=== PATIENT | female | born 1965 | race Caucasian/White ===

== ENCOUNTER 2022-12-29 19:27 | Emergency (ER) | payer OTHER, MEDICAID, SELFPAY ==
[2022-12-29 19:37] VITALS: BP 151/57; PULSE 83; RESP 18; TEMP 36.5; O2SAT 100
--- NOTE | 2022-12-29 19:54 | CT_ITS ---
[facility] [id number] Patient Name: LEI KELLY MRN: [id number] date: 1965 Sex: F Assigned Patient Location: ER Current Patient Location: ER Accession/Order Number: [id number] Exam Date: 12/29/2022 20:15 Report Date: 12/29/2022 21:00 At the request of: YOGI BEAVERS Procedure: CT abdomen pelvis w con EXAMINATION: CT ABDOMEN AND PELVIS WITH IV CONTRAST CLINICAL HISTORY: Right lower quadrant abdominal abscess TECHNIQUE: CT of the abdomen and pelvis was performed using standard technique, scanning from just above the dome of the diaphragm to the symphysis pubis. All CT scans at this facility use dose modulation, iterative reconstruction, and/or weight based dosing when appropriate to reduce radiation dose to as low as reasonably achievable. Contrast: IV: 100 ml of Omnipaque 300 COMPARISON: None. RESULT: Liver: No mass. Biliary: No bile duct dilation. Gallbladder is absent. Spleen: No mass. No splenomegaly. Pancreas: Mild fatty atrophy of the pancreas. No mass or duct dilation. Adrenals: No mass. Kidneys: No mass, calculus or hydronephrosis. GI tract: No dilation or wall thickening. Moderate colonic stool. Colonic diverticulosis without diverticulitis. Lymph nodes: No abdominal or pelvic lymphadenopathy. Mesentery/Peritoneum: No ascites or mass. Retroperitoneum: No mass. Vasculature: The celiac axis and SMA are patent. The portal vein and branches, splenic vein, SMV, and hepatic veins are patent. Abdominal aortic atherosclerotic disease without aneurysm. Pelvis: No mass, ascites or fluid collection. Urinary bladder is unremarkable. . Bones/Soft Tissues: Marked wall thickening and subcutaneous stranding along the anterior abdominal wall more prominent on the right. No drainable fluid collection. Subcutaneous calcification along the inferior pannus Lower thorax: Unremarkable. IMPRESSION: Anterior lower abdominal wall thickening, prominent on the right with subcutaneous stranding. No drainable fluid collection or abscess. Electronically authenticated by: EVETTE FUENTES Date: 12/29/2022 21:00
--- NOTE | 2022-12-29 19:56 | ED.GENADUL1 ---
Documented by User: Paula Johnson 12/29/22 21:52 HPI - General Adult General Chief complaint: Skin/Abscess/Foreign Body Stated complaint: WOUND CHECK ADB Time Seen by Provider: 12/29/22 19:28 Source: patient Mode of arrival: walk-in Limitations: physical limitation History of Present Illness HPI narrative: 57 year old female presents to the ED for a raised, painful area to her abdomen. Onset was a few days ago. States it started as a blister which since broke open and has been draining. She has developed surrounding erythema, discomfort that has gotten worse over the past few days. The area on the abdomen is not currently draining. Denies fever, chills, injury, N/V/D. Rates her pain 7/10 at this time. Related Data Home Medications Medication Instructions Recorded Confirmed fluticasone propionate 50 2 spray intranasal Q12H 12/29/22 12/29/22 mcg/actuation nasal spray,suspension losartan 50 mg tablet 50 mg PO DAILY 12/29/22 12/29/22 meloxicam 15 mg tablet 15 mg PO DAILY 12/29/22 12/29/22 metformin 1,000 mg tablet 1,000 mg PO .twice daily 12/29/22 12/29/22 pregabalin 100 mg capsule 100 mg PO Q12H 12/29/22 12/29/22 rosuvastatin 20 mg tablet 20 mg PO DAILY 12/29/22 12/29/22 Previous Rx's Medication Instructions Recorded cephalexin 500 mg capsule 500 mg PO QID 10 days #40 caps 12/29/22 doxycycline monohydrate 100 mg 100 mg PO BID 10 days #20 caps 12/29/22 capsule Allergies Allergy/AdvReac Type Severity Reaction Status Date / Time No Known Drug Allergies Allergy Verified 12/29/22 19:49 Review of Systems ROS Constitutional Denies: fever, chills or fatigue Cardiovascular Denies: chest pain Respiratory Denies: shortness of breath or cough Gastrointestinal Reports: abdominal pain; Denies: nausea, vomiting or diarrhea Genitourinary Denies: painful urination Musculoskeletal Denies: back pain Integumentary/Breast Reports: redness, skin pain, skin tenderness and skin swelling Neurological Denies: headache Exam Constitutional Vital Signs - 24 hr 12/29/22 19:37 12/29/22 20:32 12/29/22 20:41 Temperature 97.7 F Pulse Rate [Monitor] 83 95 H Respiratory Rate 18 18 18 Blood Pressure [Right Arm] 151/57 H 128/64 H Pulse Oximetry 100 96 96 Oxygen Delivery Method Room Air Room Air Room Air 12/29/22 21:09 12/29/22 23:13 Temperature 100.1 F H Pulse Rate [Monitor] 94 H 103 H Respiratory Rate 16 20 Blood Pressure [Right Arm] 145/5 H 129/70 H Pulse Oximetry 99 99 Oxygen Delivery Method Room Air Room Air Common normals: no apparent distress and oriented x3 General appearance: cooperative; not in distress and not ill appearing Chest Chest: symmetrical chest wall rise Respiratory Common normals: normal respiratory effort Auscultation: clear to auscultation bilaterally Cardio Common normals: regular rate GI Inspection: erythema (Mid to right-sided abd with scabbed 1 cm area in center. ) and pannus present Auscultation: normoactive bowel sounds Palpation: firm (Over areas of erythema to right and mid abdomen.) and tender (Over the areas of erythema to right and mid abdomen.) Extremity Common normals: normal capillary refill Neuro Common normals: oriented x3 Sensorium/orientation: awake and alert Speech: speech normal Course Vital Signs Vital signs: Vital Signs Temperature 97.7 F 12/29/22 19:37 Pulse Rate 83 12/29/22 19:37 Respiratory Rate 18 12/29/22 19:37 Blood Pressure 151/57 H 12/29/22 19:37 Pulse Oximetry 100 12/29/22 19:37 Oxygen Delivery Method Room Air 12/29/22 19:37 Temperature 100.1 F H 12/29/22 23:13 Pulse Rate 103 H 12/29/22 23:13 Respiratory Rate 20 12/29/22 23:13 Blood Pressure 129/70 H 12/29/22 23:13 Pulse Oximetry 99 12/29/22 23:13 Oxygen Delivery Method Room Air 12/29/22 23:13 Medical Decision Making MDM Narrative Medical decision making narrative: WBC count was 8.9. CT scan showed no drainable fluid collection or abscess. The patient was started on antibiotics here in the ED. She preferred to be discharged home. Prescriptions were provided for Keflex and doxycycline. Return precautions were discussed. Follow up with pcp for a recheck, further evaluation and treatment. Differential Diagnosis Differential Diagnosis: Cellulitis, abscess Lab Data Lab results reviewed: Yes I reviewed the patient's lab results Labs: Lab Results 12/29/22 Range/Units 19:50 WBC 8.9 (4.0-11.0) 10^3/uL RBC 3.84 L (4.20-5.40) 10^6/uL Hgb 11.7 L (12.0-16.0) g/dL Hct 34.9 L (36.0-48.0) % MCV 90.9 (81.0-99.0) fL MCH 30.5 (26.7-34.0) pg MCHC 33.5 (29.9-35.2) g/dL RDW 14.7 (11.0-15.0) % Plt Count 223 (150-450) 10^3/uL MPV 10.0 (9.5-13.5) fL Neut % (Auto) 74.7 (43.0-75.0) % Lymph % (Auto) 12.9 L (20.5-60.0) % [place] % (Auto) 8.7 (1.7-12.0) % Eos % (Auto) 3.1 (0.9-7.0) % Baso % (Auto) 0.4 (0.2-2.0) % Neut # (Auto) 6.6 H (1.4-6.5) 10^3/uL Lymph # (Auto) 1.2 (1.2-3.8) 10^3/uL [place] # (Auto) 0.8 (0.3-0.8) 10^3/uL Eos # (Auto) 0.3 (0.0-0.7) 10^3/uL Baso # (Auto) 0.0 (0.0-0.1) 10^3/uL Abs Immat Gran (auto) 0.02 (0.00-0.03) 10^3/uL Imm/Tot Granulo (auto) 0.2 (0.0-0.5) % Sodium 133 L (136-145) mmol/L Potassium 3.3 L (3.5-5.1) mmol/L Chloride 98 (98-107) mmol/L Carbon Dioxide 20.7 L (21.0-32.0) mmol/L Anion Gap 17.6 BUN 15.2 (7.0-18.0) mg/dL Creatinine 0.66 (0.55-1.02) mg/dL Est GFR ( Amer) >60 (>=60) Est GFR (Non-Af Amer) >60 (>=60) BUN/Creatinine Ratio 23.0 Glucose 295 H (74-106) mg/dL Lactate 1.6 (0.4-2.0) mmol/L Calcium 8.9 (8.5-10.1) mg/dL Total Bilirubin 0.7 (0.2-1.0) mg/dL AST 13 L (15-37) U/L ALT 22 (14-59) U/L Alkaline Phosphatase 135 H (46-116) U/L Total Protein 6.8 (6.4-8.2) g/dL Albumin 3.0 L (3.4-5.0) g/dL Globulin 3.8 g/dL Albumin/Globulin Ratio 0.[address] scan - abdomen: Radiologist's impression: Procedure:? CT abdomen pelvis w con ? EXAMINATION: CT ABDOMEN AND PELVIS WITH IV CONTRAST ? CLINICAL HISTORY: Right lower quadrant abdominal abscess ? TECHNIQUE: CT of the abdomen and pelvis was performed using standard technique, scanning from just above the dome of the diaphragm to the symphysis pubis. All ? CT scans at this facility use dose modulation, iterative reconstruction, and/or weight based dosing when appropriate to reduce radiation dose to as low as reasonably achievable. ? Contrast: IV: 100 ml of Omnipaque 300 ? COMPARISON: None. ? RESULT: ? Liver: No mass. ? Biliary: No bile duct dilation. Gallbladder is absent. ? Spleen: No mass. No splenomegaly. ? Pancreas: Mild fatty atrophy of the pancreas. No mass or duct dilation. ? Adrenals: No mass. ? Kidneys: No mass, calculus or hydronephrosis. ? GI tract: No dilation or wall thickening. Moderate colonic stool. Colonic diverticulosis without diverticulitis. ? Lymph nodes: No abdominal or pelvic lymphadenopathy. ? Mesentery/Peritoneum: No ascites or mass. ? Retroperitoneum: No mass. ? Vasculature: The celiac axis and SMA are patent. The portal vein and branches, ? splenic vein, SMV, and hepatic veins are patent. Abdominal aortic atherosclerotic disease without aneurysm. ? Pelvis: No mass, ascites or fluid collection. Urinary bladder is unremarkable. ? . ? Bones/Soft Tissues: Marked wall thickening and subcutaneous stranding along the anterior abdominal wall more prominent on the right. No drainable fluid collection. Subcutaneous calcification along the inferior pannus ? Lower thorax: Unremarkable. ? IMPRESSION: ? Anterior lower abdominal wall thickening, prominent on the right with subcutaneous stranding. No drainable fluid collection or abscess. ? ? ? Electronically authenticated by: EVETTE? ALFREDO ? Date: 12/29/2022? 21:00 Discharge Plan Discharge Chief Complaint: Skin/Abscess/Foreign Body Clinical Impression: Cellulitis Patient Disposition: Home, Self-Care Time of Disposition Decision: 21:42 Condition: Fair Mode of Transportation: Private Vehicle Prescriptions / Home Meds: New doxycycline monohydrate 100 mg capsule 100 mg PO BID 10 Days Qty: 20 0RF cephalexin 500 mg capsule 500 mg PO QID 10 Days Qty: 40 0RF No Action losartan 50 mg tablet 50 mg PO DAILY fluticasone propionate 50 mcg/actuation spray,suspension 2 spray INTRANASAL Q12H meloxicam 15 mg tablet 15 mg PO DAILY metformin 1,000 mg tablet 1,000 mg PO .twice daily pregabalin 100 mg capsule 100 mg PO Q12H rosuvastatin 20 mg tablet 20 mg PO DAILY Instructions: Cellulitis (ED) Additional Instructions: Return to the ER for a recheck if your condition worsens. Return to the ER for a recheck if the redness spreads outside of the marking that was made here in the ED. Return for a recheck if you have had no improvement within the next 48 hours. Follow up with your family physician for a recheck, further evaluation and treatment. Stand Alone Forms: Portal Instructions Referrals: JESSE QIU [Primary Care Provider] - 1 week Discharge Date/Time: 12/29/22 23:16 Documented by User: Daisy Haney MD 12/30/22 01:15 HPI - General Adult General Chief complaint: Skin/Abscess/Foreign Body Stated complaint: WOUND CHECK ADB Time Seen by Provider: 12/29/22 19:28 Related Data Home Medications Medication Instructions Recorded Confirmed fluticasone propionate 50 2 spray intranasal Q12H 12/29/22 12/29/22 mcg/actuation nasal spray,suspension losartan 50 mg tablet 50 mg PO DAILY 12/29/22 12/29/22 meloxicam 15 mg tablet 15 mg PO DAILY 12/29/22 12/29/22 metformin 1,000 mg tablet 1,000 mg PO .twice daily 12/29/22 12/29/22 pregabalin 100 mg capsule 100 mg PO Q12H 12/29/22 12/29/22 rosuvastatin 20 mg tablet 20 mg PO DAILY 12/29/22 12/29/22 Previous Rx's Medication Instructions Recorded cephalexin 500 mg capsule 500 mg PO QID 10 days #40 caps 12/29/22 doxycycline monohydrate 100 mg 100 mg PO BID 10 days #20 caps 12/29/22 capsule Allergies Allergy/AdvReac Type Severity Reaction Status Date / Time No Known Drug Allergies Allergy Verified 12/29/22 19:49 Exam Constitutional Vital Signs - 24 hr 12/29/22 19:37 12/29/22 20:32 12/29/22 20:41 Temperature 97.7 F Pulse Rate [Monitor] 83 95 H Respiratory Rate 18 18 18 Blood Pressure [Right Arm] 151/57 H 128/64 H Pulse Oximetry 100 96 96 Oxygen Delivery Method Room Air Room Air Room Air 12/29/22 21:09 12/29/22 23:13 Temperature 100.1 F H Pulse Rate [Monitor] 94 H 103 H Respiratory Rate 16 20 Blood Pressure [Right Arm] 145/5 H 129/70 H Pulse Oximetry 99 99 Oxygen Delivery Method Room Air Room Air Course Vital Signs Vital signs: Vital Signs Temperature 97.7 F 12/29/22 19:37 Pulse Rate 83 12/29/22 19:37 Respiratory Rate 18 12/29/22 19:37 Blood Pressure 151/57 H 12/29/22 19:37 Pulse Oximetry 100 12/29/22 19:37 Oxygen Delivery Method Room Air 12/29/22 19:37 Temperature 100.1 F H 12/29/22 23:13 Pulse Rate 103 H 12/29/22 23:13 Respiratory Rate 20 12/29/22 23:13 Blood Pressure 129/70 H 12/29/22 23:13 Pulse Oximetry 99 12/29/22 23:13 Oxygen Delivery Method Room Air 12/29/22 23:13 Medical Decision Making MDM Narrative Medical decision making narrative: WBC count was 8.9. CT scan showed no drainable fluid collection or abscess. The patient was started on antibiotics here in the ED. She preferred to be discharged home. Prescriptions were provided for Keflex and doxycycline. Return precautions were discussed. Follow up with pcp for a recheck, further evaluation and treatment. Attending physician attestation I have reviewed the mid-level documentation, agree with the documentation, medical decision making and treatment plan as outlined by the mid-level provider. Lab Data Labs: Lab Results 12/29/22 Range/Units 19:50 WBC 8.9 (4.0-11.0) 10^3/uL RBC 3.84 L (4.20-5.40) 10^6/uL Hgb 11.7 L (12.0-16.0) g/dL Hct 34.9 L (36.0-48.0) % MCV 90.9 (81.0-99.0) fL MCH 30.5 (26.7-34.0) pg MCHC 33.5 (29.9-35.2) g/dL RDW 14.7 (11.0-15.0) % Plt Count 223 (150-450) 10^3/uL MPV 10.0 (9.5-13.5) fL Neut % (Auto) 74.7 (43.0-75.0) % Lymph % (Auto) 12.9 L (20.5-60.0) % [place] % (Auto) 8.7 (1.7-12.0) % Eos % (Auto) 3.1 (0.9-7.0) % Baso % (Auto) 0.4 (0.2-2.0) % Neut # (Auto) 6.6 H (1.4-6.5) 10^3/uL Lymph # (Auto) 1.2 (1.2-3.8) 10^3/uL [place] # (Auto) 0.8 (0.3-0.8) 10^3/uL Eos # (Auto) 0.3 (0.0-0.7) 10^3/uL Baso # (Auto) 0.0 (0.0-0.1) 10^3/uL Abs Immat Gran (auto) 0.02 (0.00-0.03) 10^3/uL Imm/Tot Granulo (auto) 0.2 (0.0-0.5) % Sodium 133 L (136-145) mmol/L Potassium 3.3 L (3.5-5.1) mmol/L Chloride 98 (98-107) mmol/L Carbon Dioxide 20.7 L (21.0-32.0) mmol/L Anion Gap 17.6 BUN 15.2 (7.0-18.0) mg/dL Creatinine 0.66 (0.55-1.02) mg/dL Est GFR ( Amer) >60 (>=60) Est GFR (Non-Af Amer) >60 (>=60) BUN/Creatinine Ratio 23.0 Glucose 295 H (74-106) mg/dL Lactate 1.6 (0.4-2.0) mmol/L Calcium 8.9 (8.5-10.1) mg/dL Total Bilirubin 0.7 (0.2-1.0) mg/dL AST 13 L (15-37) U/L ALT 22 (14-59) U/L Alkaline Phosphatase 135 H (46-116) U/L Total Protein 6.8 (6.4-8.2) g/dL Albumin 3.0 L (3.4-5.0) g/dL Globulin 3.8 g/dL Albumin/Globulin Ratio 0.8 Discharge Plan Discharge Chief Complaint: Skin/Abscess/Foreign Body Clinical Impression: Cellulitis Patient Disposition: Home, Self-Care Time of Disposition Decision: 21:42 Condition: Fair Mode of Transportation: Private Vehicle Prescriptions / Home Meds: New doxycycline monohydrate 100 mg capsule 100 mg PO BID 10 Days Qty: 20 0RF cephalexin 500 mg capsule 500 mg PO QID 10 Days Qty: 40 0RF No Action losartan 50 mg tablet 50 mg PO DAILY fluticasone propionate 50 mcg/actuation spray,suspension 2 spray INTRANASAL Q12H meloxicam 15 mg tablet 15 mg PO DAILY metformin 1,000 mg tablet 1,000 mg PO .twice daily pregabalin 100 mg capsule 100 mg PO Q12H rosuvastatin 20 mg tablet 20 mg PO DAILY Instructions: Cellulitis (ED) Additional Instructions: Return to the ER for a recheck if your condition worsens. Return to the ER for a recheck if the redness spreads outside of the marking that was made here in the ED. Return for a recheck if you have had no improvement within the next 48 hours. Follow up with your family physician for a recheck, further evaluation and treatment. Stand Alone Forms: Portal Instructions Referrals: JESSE QIU [Primary Care Provider] - 1 week Discharge Date/Time: 12/29/22 23:16
[2022-12-29 20:32] VITALS: BP 128/64; PULSE 95; RESP 18; O2SAT 96
--- NOTE | 2022-12-29 20:33 | PC.NURSE ---
Large red area RLQ with small area in center that is open with pus noted. Area marked. Attempted to culture area
[2022-12-29 20:41] VITALS: RESP 18; O2SAT 96
[2022-12-29 21:05] LABS: Lactate/Lactic Acid 1.6 mmol/L (0.4-2.0)
[2022-12-29 21:09] VITALS: BP 145/5; PULSE 94; RESP 16; O2SAT 99
[2022-12-29 21:14] LABS: Hematocrit 34.9 % (36.0-48.0); Hemoglobin 11.7 g/dL (12.0-16.0); Mean Corpuscular HGB Conc 33.5 g/dL (29.9-35.2); Mean Corpuscular Hemoglobin 30.5 pg (26.7-34.0); Mean Corpuscular Volume 90.9 fL (81.0-99.0); Red Blood Count 3.84 10^6/uL (4.20-5.40); White Blood Count 8.9 10^3/uL (4.0-11.0)
[2022-12-29 21:15] LABS: Basophils Percent Auto 0.4 % (0.2-2.0); Eosinophils Absolute Auto 0.3 10^3/uL (0.0-0.7); Eosinophils Percent Auto 3.1 % (0.9-7.0); Immature Granulocytes Pct Auto 0.2 % (0.0-0.5); Lymphocytes Absolute Auto 1.2 10^3/uL (1.2-3.8); Lymphocytes Percent Auto 12.9 % (20.5-60.0); Monocytes Absolute Auto 0.8 10^3/uL (0.3-0.8); Monocytes Percent Auto 8.7 % (1.7-12.0); Neutrophils Absolute Auto 6.6 10^3/uL (1.4-6.5); Neutrophils Percent Auto 74.7 % (43.0-75.0); Platelet Count 223 10^3/uL (150-450); Red Cell Distribution Width 14.7 % (11.0-15.0)
[2022-12-29 21:16] LABS: Immature Granulocytes Abs Auto 0.02 10^3/uL (0.00-0.03)
[2022-12-29 21:20] LABS: Anion Gap 17.6; Blood Urea Nitrogen 15.2 mg/dL (7.0-18.0); Calcium 8.9 mg/dL (8.5-10.1); Carbon Dioxide 20.7 mmol/L (21.0-32.0); Chloride 98 mmol/L (98-107); Estimated GFR (African America >60 (>=60); Estimated GFR (Non-African Ame >60 (>=60); Glucose 295 mg/dL (74-106); Potassium 3.3 mmol/L (3.5-5.1); Sodium 133 mmol/L (136-145)
[2022-12-29 21:21] LABS: Alanine Aminotransferase 22 U/L (14-59); Albumin Globulin Ratio 0.8; Alkaline Phosphatase 135 U/L (46-116); Aspartate Amino Transferase 13 U/L (15-37); Bilirubin Total 0.7 mg/dL (0.2-1.0); Globulin 3.8 g/dL; Total Protein 6.8 g/dL (6.4-8.2)
[2022-12-29] MEDS: DOXYCYCLINE MONOHYDRATE 100 MG CAPSULE PO (22:24)
[2022-12-29] MEDS: CEFAZOLIN SODIUM 1,000 MG in 0.9 % SODIUM CHLORIDE 50 ML 100 MG IV (22:24)
[2022-12-29 23:13] VITALS: BP 129/70; PULSE 103; RESP 20; TEMP 37.8; O2SAT 99
== END 2022-12-29 23:16 | disposition home or self-care (01) ==
PROVIDERS: Nurse Practitioner Family; Emergency Provider Emergency Medicine; PCP Internal Medicine
DX: L03.311 Cellulitis of abdominal wall (principal); Z79.84 Long term (current) use of oral hypoglycemic drugs; Z79.899 Other long term (current) drug therapy
CPT/HCPCS: 36415; 74177; 80053; 83605; 85025; 87040; 87070; 87150; 87186; 96374; 99285; Q9967

== ENCOUNTER 2023-01-03 22:49 | Inpatient (IN) | payer OTHER, MEDICAID, SELFPAY ==
[2023-01-03 22:54] VITALS: BP 161/90; PULSE 58; RESP 18; TEMP 36.9; O2SAT 100; BMI 44.9
[2023-01-03 22:55] VITALS: BP 161/90; O2SAT 82; O2SAT 99
--- NOTE | 2023-01-03 23:11 | CT_ITS ---
The [address] [place], [place] [address] Patient Name: LEI KELLY MRN: [id number] date: 1965 Sex: F Assigned Patient Location: ER Current Patient Location: Accession/Order Number: [id number] Exam Date: 01/03/2023 23:50 Report Date: 01/04/2023 01:08 At the request of: MUNIR MARKER Procedure: CT abdomen pelvis w con EXAM: CT abdomen pelvis w con HISTORY: abdominal abscess COMPARISON: CT abdomen and pelvis most recently 12/29/2022. TECHNIQUE: Images of the abdomen and pelvis with IV contrast. Dose reduction techniques were achieved by using automated exposure control and/or adjustment of mA and/or kV according to patient size and/or use of iterative reconstruction technique. FINDINGS: Lung bases are clear. No adrenal mass or adenopathy. No obstructive uropathy. Normal aorta. No bowel obstruction or inflammation. No pneumatosis or pneumoperitoneum. Patient is morbidly obese. There is persistent skin thickening and subcutaneous edema in the right greater than left lower quadrant. No organized fluid collection. No soft tissue gas. There is no pelvic adenopathy or ascites. Bladder is decompressed. There is evidence of fluid distention of the endometrial cavity with uterine atrophy. No suspicious lytic or sclerotic osseous lesions. IMPRESSION: 1. Abdominal wall edema in the lower quadrants right greater than left. No significant change from last weeks exam. No evidence of abscess. 2. Hydrometra redemonstrated. This is of indeterminate acuity and should be followed up with outpatient transvaginal pelvic ultrasound. Electronically authenticated by: EBONIE JEWELL Date: 01/04/2023 01:08
--- NOTE | 2023-01-03 23:33 | ED_ITS ---
HPI - General Adult General Stated complaint: WOUND CHECK Time Seen by Provider: 01/03/23 23:11 Source: patient Mode of arrival: walk-in History of Present Illness HPI narrative: This 57-year-old female, diabetic was seen last Sunday for an abscess on the right lower abdominal wall. She was discharged home with prescription for Keflex and doxycycline. She has been using the antibiotics but the symptoms have been slowly getting worse. She has a large indurated area in the lower abdominal wall as well as drainage from a necrotic area approximately 2 x 3 cm on the abdominal wall. She denies any fever. She states she has been having pain and the pain is making her nauseated. She states her symptoms started several days prior to coming to the emergency department. Location: Reports abdomen Related Data Home Medications Medication Instructions Recorded Confirmed fluticasone propionate 50 2 spray intranasal Q12H 12/29/22 12/29/22 mcg/actuation nasal spray,suspension losartan 50 mg tablet 50 mg PO DAILY 12/29/22 12/29/22 meloxicam 15 mg tablet 15 mg PO DAILY 12/29/22 12/29/22 metformin 1,000 mg tablet 1,000 mg PO .twice daily 12/29/22 12/29/22 pregabalin 100 mg capsule 100 mg PO Q12H 12/29/22 12/29/22 rosuvastatin 20 mg tablet 20 mg PO DAILY 12/29/22 12/29/22 Previous Rx's Medication Instructions Recorded cephalexin 500 mg capsule 500 mg PO QID 10 days #40 caps 12/29/22 doxycycline monohydrate 100 mg 100 mg PO BID 10 days #20 caps 12/29/22 capsule Allergies Allergy/AdvReac Type Severity Reaction Status Date / Time No Known Drug Allergies Allergy Verified 12/29/22 19:49 Review of Systems ROS Status of ROS 10 or more systems reviewed and unremarkable except as noted in history and below Exam Constitutional Vital Signs - 24 hr 01/03/23 22:54 01/03/23 22:55 Temperature 98.4 F Pulse Rate [Monitor] 58 L Respiratory Rate 18 Blood Pressure 161/90 H Blood Pressure [Right Arm] 161/90 H Pulse Oximetry 100 99 Oxygen Delivery Method Room Air Documenting provider has reviewed patient's vital signs: yes (Afebrile, hypertensive) Common normals: no apparent distress (Nontoxic but uncomfortable) Nutritional appearance: obese Orientation/consciousness: Yes awake, Yes oriented to person, Yes oriented to place and Yes oriented to time HENMT Common normals: normocephalic and head/scalp atraumatic Eye Common normals: PERRL and EOMs intact bilaterally Chest Common normals: inspection of chest normal Respiratory Common normals: normal respiratory effort, no retractions, no use of accessory muscles, clear to auscultation bilaterally and percussion normal Cardio Common normals: no JVD, regular rate, regular rhythm, S1 normal heart sound, S2 normal heart sound, no gallops and no clicks GI Inspection: other (2 x 3 cm draining abscess on the right lower abdominal wall ) Other: 2 x 3 cm area of necrotic abscess on right lower abdominal wall with local induration approximately 10 x 8 cm into the dependent portion of the pannus on the lower abdominal wall, this is draining copious purulent material which was cultured Neuro Common normals: oriented x3 Speech: speech normal Psych Common normals: mental status grossly normal Course Vital Signs Vital signs: Vital Signs Temperature 98.4 F 01/03/23 22:54 Pulse Rate 58 L 01/03/23 22:54 Respiratory Rate 18 01/03/23 22:54 Blood Pressure 161/90 H 01/03/23 22:54 Pulse Oximetry 100 01/03/23 22:54 Oxygen Delivery Method Room Air 01/03/23 22:54 Temperature 98.4 F 01/03/23 22:54 Pulse Rate 58 L 01/03/23 22:54 Respiratory Rate 18 01/03/23 22:54 Blood Pressure 161/90 H 01/03/23 22:55 Pulse Oximetry 99 01/03/23 22:55 Oxygen Delivery Method Room Air 01/03/23 22:54 Medical Decision Making [facility] Narrative Medical decision making narrative: This 57-year-old female with a history of diabetes was seen in this emergency d epartment on 6 for right lower quadrant abdominal abscess. At that time she had a blistery pimple type of infection on her abdominal wall with some local erythema. There was a purple marker drawn around the area of erythema on the abdominal wall. She had normal labs and CT scan at that time showed anterior lower abdominal wall thickening prominent on the right with subcutaneous stranding with no drainable fluid collection or abscess. She was discharged home with prescription for Keflex and doxycycline. She presents to the emergency department at this time for evaluation of increasing tenderness and drainage from the area in the right lower quadrant of her abdominal wall. She has not had a fever. The abscess area had been cultured on her previous Emergency Room visit and was positive for staph aureus. This appears to be organizing now into a drainable abscess. An IV was placed and she was given IV Zosyn, fluids, morphine and Zofran. Routine labs including 2 sets of blood cultures, CBC with differential, lactic acid and electrolytes were ordered. She has a normal white count, she has normal hemoglobin, she has a normal lactic acid, her glucose is elevated at 396. She was given 10 units of insulin for the hyperglycemia. CT scan abdomen and pelvis with IV contrast is similar to the previous reading and shows abdominal wall edema in the lower quadrants right greater than left with no significant change from last week's exam and no evidence of abscess. There is a large necrotic draining area on the abdominal wall with local induration and tenderness. This was again cultured. She was given additional antibiotics including vancomycin. The case was discussed with the general surgeon immigration investigator who agrees to see the patient in consult. The case was discussed with the hospitalist and the patient is accepted for admission to [facility]. She remains hemodynamically stable in the emergency department and comfortable after her morphine. Lab Data Lab results reviewed: Yes I reviewed the patient's lab results Lab results narrative: She has a normal white count and hemoglobin. Lactic acid normal. She has normal BUN/creatinine. Liver functions tests are normal.She has an elevated glucose of 396. Blood cultures are pending. Reviewed previous wound culture and it was positive for staph aureus. Labs: Lab Results 01/03/23 Range/Units 23:10 WBC 6.6 (4.0-11.0) 10^3/uL RBC 3.79 L (4.20-5.40) 10^6/uL Hgb 11.2 L (12.0-16.0) g/dL Hct 33.6 L (36.0-48.0) % MCV 88.7 (81.0-99.0) fL MCH 29.6 (26.7-34.0) pg MCHC 33.3 (29.9-35.2) g/dL RDW 14.4 (11.0-15.0) % Plt Count 298 (150-450) 10^3/uL MPV 9.5 (9.5-13.5) fL Neut % (Auto) 61.3 (43.0-75.0) % Lymph % (Auto) 20.7 (20.5-60.0) % Brule % (Auto) 10.9 (1.7-12.0) % Eos % (Auto) 5.7 (0.9-7.0) % Baso % (Auto) 0.6 (0.2-2.0) % Neut # (Auto) 4.1 (1.4-6.5) 10^3/uL Lymph # (Auto) 1.4 (1.2-3.8) 10^3/uL Brule # (Auto) 0.7 (0.3-0.8) 10^3/uL Eos # (Auto) 0.4 (0.0-0.7) 10^3/uL Baso # (Auto) 0.0 (0.0-0.1) 10^3/uL Abs Immat Gran (auto) 0.05 H (0.00-0.03) 10^3/uL Imm/Tot Granulo (auto) 0.8 H (0.0-0.5) % Sodium 137 (136-145) mmol/L Potassium 3.3 L (3.5-5.1) mmol/L Chloride 100 (98-107) mmol/L Carbon Dioxide 27.3 (21.0-32.0) mmol/L Anion Gap 13.0 BUN 7.0 (7.0-18.0) mg/dL Creatinine 0.67 (0.55-1.02) mg/dL Est GFR ( Amer) >60 (>=60) Est GFR (Non-Af Amer) >60 (>=60) BUN/Creatinine Ratio 10.4 Glucose 396 H (74-106) mg/dL Lactate 1.4 (0.4-2.0) mmol/L Calcium 8.7 (8.5-10.1) mg/dL Total Bilirubin 0.5 (0.2-1.0) mg/dL AST 13 L (15-37) U/L ALT 17 (14-59) U/L Alkaline Phosphatase 132 H (46-116) U/L Total Protein 6.3 L (6.4-8.2) g/dL Albumin 2.7 L (3.4-5.0) g/dL Globulin 3.6 g/dL Albumin/Globulin Ratio 0.8 Critical Care Time Critical Care Time Critical Care Time: Yes Total Critical Care Time: 40 Attestation: I personally saw and treated this patient Discharge Plan Discharge Clinical Impression: Hyperglycemia due to diabetes mellitus, Abdominal wall abscess Patient Disposition: Admitted As Inpatient Time of Disposition Decision: 01:23 Condition: Fair
--- NOTE | 2023-01-03 23:35 | PC.NURSE ---
Patient states she was seen last Sunday for an abscess on lower right abdomen. states it started as a boil, popped own and was seeping pus. patient was given iv antibiotics, had blood and wound cultures done and sent home on oral antibiotic. patient comes today, states site is 4x bigger than it was before. wound is cabrera, skin is loose, sloughing off. continuously oozing pus mixed with blood. patient states that she she has not changed the bandage since it was placed Sunday because it was continuously draining.wound was cultured. labs drawn with iv start, blood cultures done and sent to lab. saline soaked sterile gauze placed on top of wound.
[2023-01-03 23:49] LABS: Basophils Percent Auto 0.6 % (0.2-2.0); Eosinophils Absolute Auto 0.4 10^3/uL (0.0-0.7); Eosinophils Percent Auto 5.7 % (0.9-7.0); Hematocrit 33.6 % (36.0-48.0); Hemoglobin 11.2 g/dL (12.0-16.0); Immature Granulocytes Abs Auto 0.05 10^3/uL (0.00-0.03); Immature Granulocytes Pct Auto 0.8 % (0.0-0.5); Lymphocytes Absolute Auto 1.4 10^3/uL (1.2-3.8); Lymphocytes Percent Auto 20.7 % (20.5-60.0); Mean Corpuscular HGB Conc 33.3 g/dL (29.9-35.2); Mean Corpuscular Hemoglobin 29.6 pg (26.7-34.0); Mean Corpuscular Volume 88.7 fL (81.0-99.0); Mean Platelet Volume 9.5 fL (9.5-13.5); Monocytes Absolute Auto 0.7 10^3/uL (0.3-0.8); Monocytes Percent Auto 10.9 % (1.7-12.0); Neutrophils Absolute Auto 4.1 10^3/uL (1.4-6.5); Neutrophils Percent Auto 61.3 % (43.0-75.0); Platelet Count 298 10^3/uL (150-450); Red Blood Count 3.79 10^6/uL (4.20-5.40); Red Cell Distribution Width 14.4 % (11.0-15.0); White Blood Count 6.6 10^3/uL (4.0-11.0)
[2023-01-04] VITALS (17 sets, daily range): BP systolic 95–126; BP diastolic 53–74; PULSE 70–84; RESP 14–20; TEMP 36.2–36.8; O2SAT 93–99; BMI 34.8
[2023-01-04] MEDS: ONDANSETRON PF 4 MG/2 ML VIAL IV (00:01)
[2023-01-04] MEDS: MORPHINE SULFATE 4 MG/ML VIAL IV (00:01)
[2023-01-04] MEDS: 0.9 % SODIUM CHLORIDE 1,000 ML 1000 ML IV (00:01)
[2023-01-04] MEDS: PIPERACILLIN SODIUM/TAZOBACTAM 3.375 GM in 0.9 % SODIUM CHLORIDE 50 ML IV ×3 (00:02→18:32)
[2023-01-04 00:24] LABS: Lactate/Lactic Acid 1.4 mmol/L (0.4-2.0)
[2023-01-04 00:31] LABS: Alanine Aminotransferase 17 U/L (14-59); Albumin Globulin Ratio 0.8; Albumin Level 2.7 g/dL (3.4-5.0); Alkaline Phosphatase 132 U/L (46-116); Aspartate Amino Transferase 13 U/L (15-37); BUN Creatinine Ratio 10.4; Bilirubin Total 0.5 mg/dL (0.2-1.0); Calcium 8.7 mg/dL (8.5-10.1); Carbon Dioxide 27.3 mmol/L (21.0-32.0); Chloride 100 mmol/L (98-107); Estimated GFR (African America >60 (>=60); Estimated GFR (Non-African Ame >60 (>=60); Globulin 3.6 g/dL; Glucose 396 mg/dL (74-106); Potassium 3.3 mmol/L (3.5-5.1); Sodium 137 mmol/L (136-145); Total Protein 6.3 g/dL (6.4-8.2)
[2023-01-04] MEDS: VANCOMYCIN HCL 1,500 MG in 0.9 % SODIUM CHLORIDE 500 ML 250 MG IV (02:09)
[2023-01-04] MEDS: INSULIN REGULAR 300 UNITS/3 ML 10 UNIT SUBQ (02:09)
[2023-01-04 02:40] LABS: Glucometer 292 mg/dL (74-106)
--- NOTE | 2023-01-04 03:19 | W.PM.TELEPN ---
Progress Note: Subjective Subjective Interval history: weakness, malase, draining abdominal wall wound HPI: This is a 57-year-old female who presents with above complaints. Patient has a hx/o diabetic. She has been seen last Sunday in this ED for an abscess on the right lower abdominal wall. She was discharged home with prescription for Keflex and doxycycline. According t the patient in spite of antibiotics her symptoms have been slowly getting worse. She has a large indurated area in the lower abdominal wall as well as drainage from a necrotic area approximately 2 x 3 cm on the abdominal wall. She denies any fever. She states she has been having pain and the pain is making her nauseated. Patient reports having abdominal wall wound years ago and, and that time she has to have large surgery with exploratory laparothomy and partial colon resection (fistula?) Exam Narrative Exam Narrative: NAD, PERRLA, EOMI, Obese Neck - supple, THE, no LNs Lungs - cCTA B/L CVS - S1, S2, no murmurs ABd - obses, NT, ND, large indurated area in the RLQ draining purulent material. Packed Ext - no C,C,E Neuro CN II-XII intact, no sensory deficit Psych- normal affect Constitutional Vital Signs - 24 hr 01/03/23 22:54 01/03/23 22:55 01/03/23 22:55 Temperature 98.4 F Pulse Rate Pulse Rate [Monitor] 58 L Respiratory Rate 18 Blood Pressure 161/90 H 161/90 H Blood Pressure [Right Arm] 161/90 H Pulse Oximetry 100 99 82 L Oxygen Delivery Method Room Air 01/04/23 01:52 01/04/23 02:00 01/04/23 02:24 Temperature 97.9 F Pulse Rate 79 Pulse Rate [Monitor] Respiratory Rate 20 Blood Pressure 124/68 H 126/64 H Blood Pressure [Right Arm] 123/74 H Pulse Oximetry 95 99 98 Oxygen Delivery Method Room Air 01/04/23 02:24 Temperature Pulse Rate Pulse Rate [Monitor] Respiratory Rate Blood Pressure Blood Pressure [Right Arm] Pulse Oximetry 98 Oxygen Delivery Method Room Air Progress Note: Objective Labs Labs: Short CBC 01/03/23 Range/Units 23:10 WBC 6.6 (4.0-11.0) 10^3/uL Hgb 11.2 L (12.0-16.0) g/dL Hct 33.6 L (36.0-48.0) % Plt Count 298 (150-450) 10^3/uL BMP 01/03/23 23:10 Sodium 137 Potassium 3.3 L Chloride 100 Carbon Dioxide 27.3 BUN 7.0 Creatinine 0.67 Glucose 396 H Calcium 8.7 Liver Function 01/03/23 Range/Units 23:10 Total Bilirubin 0.5 (0.2-1.0) mg/dL AST 13 L (15-37) U/L ALT 17 (14-59) U/L Alkaline Phosphatase 132 H (46-116) U/L Albumin 2.7 L (3.4-5.0) g/dL Progress Note: A&P Assessment and Plan (1) Cellulitis: Assessment and Plan: started on empric broad spectrum ABxs F/U cxs F/u with General Srgery (2) Hyperglycemia due to diabetes mellitus: Assessment and Plan: related to above. Started on long and short acting Insulis Hypoglycemia protocol in place (3) Abdominal wall abscess: Assessment and Plan: as above (4) Diabetes: Assessment and Plan: as above (5) Fibromyalgia: Assessment and Plan: differ for OP management (6) High cholesterol: Assessment and Plan: on statin, continue current dose (7) Chronic pain: Assessment and Plan: resume home RX Telemedicine Attestation Telemedicine Attestation I conducted this encounter from [[place]] via secure live, [id number] video conference with the patient, located at [facility] with [abdominal abscess]. Prior to the interview, the risks and benefits of telemedicine were discussed with the patient and verbal consent was obtained.
[2023-01-04] MEDS: 0.9 % SODIUM CHLORIDE 1,000 ML 100 ML IV (04:11)
[2023-01-04 05:31] LABS: Alanine Aminotransferase 15 U/L (14-59); Albumin Globulin Ratio 0.7; Albumin Level 2.1 g/dL (3.4-5.0); Alkaline Phosphatase 104 U/L (46-116); Anion Gap 10.7; Aspartate Amino Transferase 11 U/L (15-37); Bilirubin Total 0.3 mg/dL (0.2-1.0); Calcium 7.8 mg/dL (8.5-10.1); Carbon Dioxide 26.2 mmol/L (21.0-32.0); Chloride 104 mmol/L (98-107); Estimated GFR (African America >60 (>=60); Estimated GFR (Non-African Ame >60 (>=60); Globulin 3.1 g/dL; Glucose 253 mg/dL (74-106); Sodium 138 mmol/L (136-145); Total Protein 5.2 g/dL (6.4-8.2)
[2023-01-04 06:21] LABS: Potassium 2.9 mmol/L (3.5-5.1)
[2023-01-04 06:42] LABS: Magnesium 1.8 mg/dL (1.8-2.4); Prealbumin 8.3 mg/dL (20.9-45.5)
[2023-01-04] MEDS: HYDROCODONE/ACETAMINOPHEN 5-325 MG TABLET 1 TAB PO ×4 (07:38→23:33)
[2023-01-04 08:19] LABS: Glucometer 240 mg/dL (74-106)
[2023-01-04] MEDS: PREGABALIN 100 MG CAPSULE PO ×2 (09:08→21:22)
[2023-01-04] MEDS: OMEPRAZOLE 40 MG CAPSULE.DR PO (09:08)
[2023-01-04] MEDS: LOSARTAN POTASSIUM 50 MG TABLET PO (09:08)
[2023-01-04] MEDS: MELOXICAM 7.5 MG TABLET 15 MG PO (09:09)
[2023-01-04] MEDS: INSULIN ASPART 300 UNIT/3 ML PEN SUBQ ×4 (09:09→21:23)
[2023-01-04] MEDS: POTASSIUM CHLORIDE 10 MEQ ER TABLET 20 MEQ PO ×2 (09:09→18:32)
[2023-01-04] MEDS: FLUTICASONE PROPIONATE 50 MCG NASAL SPRAY 2 SPRAY NS (09:10)
[2023-01-04 09:17] LABS: HCG Quantitative <1 mIU/mL
[2023-01-04 09:27] LABS: Estimated Average Glucose 324 mg/dL; Glycohemoglobin A1C 12.9 % (4.5-6.2)
[2023-01-04 10:20] LABS: INR 1.03; Partial Thromboplastin Time 26.3 sec (22.3-36.2); Prothrombin Time 10.9 sec (9.0-11.6)
--- NOTE | 2023-01-04 10:44 | CM.NOTE ---
Rounds made with Dr. Cisneros, awaiting consult from Dr. Morillo. No discharge today. PT and OT also to evaluate pt.
[2023-01-04 11:05] LABS: Glucometer 203 mg/dL (74-106)
--- NOTE | 2023-01-04 11:12 | PM.HP ---
H&P: HPI History of Present Illness Chief complaint: WOUND CHECK, ABDOMINAL WALL ABCESS, HYPERGLYCEMIA Narrative: patient is a 57-year-old female with past medical history of uncontrolled type 2 diabetes, hypertension, hyperlipidemia. Patient reports that she was supposed to be on insulin but could not afford it. Since that time her sugars have been high but she also reports she does not have a working glucometer at home. Over the course of the last week she has been seen a mid level clinician in [place] for a left toe wound most recently this past Sunday she reports she had to have it packed and dressed. She was wearing steel toed boots at work and the rubbing cause the wound. Also on the at this month she visited the Emergency Room for a boil on her lower right abdomen and was treated with Keflex and doxycycline. The patient reports that the boil began to use and continues to abuse but has become more painful red and unbearable to touch. Patient therefore was admitted for an acute abdominal abscess with cellulitis and wound culture from 12/29/2022 showed staph areus and strep atalactaie. she denies any fevers or chills just notes some discomfort to that right abdominal area. She notes she has had surgeries in the past a , and abdominal fistula repair, which resulted in a treatment for deep vein thrombosis postop, and a cholecystectomy. She reports anesthesia makes her nauseous but no other complications with surgeries. Review of Systems ROS Narrative ROS: a complete review of systems were reviewed with patient and are positive as below or listed in History of Chief Complaint. General: no fever, chills, night sweats Head: no headache, trauma, visual changes, nausea or vomiting Skin:multiple wounds, the largest on the right lower abdomen, and left 3rd toe Eyes: no blurriness of vision Ears: no reported hearing loss, vertigo, earache, or tinnitus Throat: no sore throat, hoarseness, swelling of neck, or tongue pain Heart: no chest pain Lungs: no shortness of breath or cough GI: no diarrhea or vomiting/nausea Urinary: no urinary urgency, frequency or pain Neuro: no numbness or tingling HEM: no bleeding issues or bruising ENDO: no thyroid problems Psych: no anxiety or depression [facility] Medical History (Updated 01/04/23 @ 11:35 by Yuliana Cisneros DO) Family History Mother Family history of diabetes mellitus Family history of stroke Family history of COPD (chronic obstructive pulmonary disease) Father Family history of diabetes mellitus Social History Within the past year, how often did you have a drink containing alcohol: never Within the past year, how many standard drinks containing alcohol did you have on a typical day: 1 or 2 Within the past year, how often did you have six or more drinks on one occasion: never Total score: 0 Score interpretation: A score less than 3 is consistent with normal alcohol consumption. Smoking status: Never smoker Second hand tobacco smoke exposure: No Non-prescribed substance use: denies use Previous occupational history: worker Known occupational exposures/hazards: No Highest level of school completed/degree received: Associate degree: academic program Do you want help with school or training: No Are you now , , , , never or living with a partner: In a typical week, how many times do you talk on the telephone with family, friends, or neighbors: 3 or more times per week How often do you get together with friends or relatives: twice per week How often do you attend mosque or lutheran services: 1-3 times per year Do you belong to any clubs or organizations such as mosque groups unions, fraternal or athletic groups, or school groups: yes Total score: 2 Score interpretation: A score of greater than or equal to 2 indicates the lowest level of social isolation. Little interest or pleasure in doing things: not at all Feeling down, depressed, or hopeless: not at all Feel stressed/tense/nervous/anxious/difficulty sleeping: not at all Due to disability, difficulty making decisions: No Do you think of yourself as: straight/heterosexual Gender Identity: female Meds Home Medications and Allergies Home Medications Medication Instructions Recorded Confirmed Type fluticasone propionate 50 2 spray intranasal .ONCE DAILY 12/29/22 01/04/23 History mcg/actuation nasal spray,suspension losartan 50 mg tablet 50 mg PO DAILY 12/29/22 01/04/23 History meloxicam 15 mg tablet 15 mg PO DAILY 12/29/22 01/04/23 History metformin 1,000 mg tablet 1,000 mg PO .twice daily 12/29/22 01/04/23 History pregabalin 100 mg capsule 100 mg PO Q12H 12/29/22 01/04/23 History rosuvastatin 20 mg tablet 20 mg PO DAILY 12/29/22 01/04/23 History cephalexin 500 mg capsule 500 mg PO QID 01/04/23 01/04/23 History doxycycline monohydrate 100 mg 100 mg PO BID 01/04/23 01/04/23 History capsule Allergies Allergy/AdvReac Type Severity Reaction Status Date / Time No Known Drug Allergies Allergy Verified 12/29/22 19:49 Exam Narrative Exam Narrative: General: Patient is alert, and oriented to person, place and time with normal affect, proper hygiene Skin: right lower abdomen shows some surrounding erythema with a 8 cm x 6 cm area of induration/fluctuance there is an open area approximately 2 x 3 cm with some evidence of necrosis. Head: atraumatic, acephalic Eyes: PERRLA, no nystagmus present, conjunctiva clear, no scleral icterus Ears: normal gross auditory acuity Heart: Normal rate and rhythm, no murmurs/rubs/gallops Lungs: no audible wheezes, crackles and normal breath sounds all lung butcher Abdomen: Normal audible bowel sounds, no distension, No palpable masses, no organomegaly, no rebound/guarding/ or rigidity see the skin exam listed above Musculoskeletal: no swelling bilateral lower extremities, Vascular: Normal carotid, radial, femoral, posterior tibial, and dorsalis pedis pulses Lymph: no supraclavicular, axillary, or anterior/posterior cervical adenopathy Neuro: CN II-X grossly intact, normal sensation upper and lower extremities Constitutional Vital Signs - 24 hr 01/03/23 22:54 01/03/23 22:55 01/03/23 22:55 Temperature 98.4 F Pulse Rate Pulse Rate [Monitor] 58 L Respiratory Rate 18 Blood Pressure 161/90 H 161/90 H Blood Pressure [Right Arm] 161/90 H Pulse Oximetry 100 99 82 L Oxygen Delivery Method Room Air 01/04/23 01:52 01/04/23 02:00 01/04/23 02:24 Temperature 97.9 F Pulse Rate 79 Pulse Rate [Monitor] Respiratory Rate 20 Blood Pressure 124/68 H 126/64 H Blood Pressure [Right Arm] 123/74 H Pulse Oximetry 95 99 98 Oxygen Delivery Method Room Air 01/04/23 02:24 01/04/23 05:04 Temperature 98.1 F Pulse Rate 70 Pulse Rate [Monitor] Respiratory Rate 18 Blood Pressure Blood Pressure [Right Arm] 115/67 Pulse Oximetry 98 95 Oxygen Delivery Method Room Air Room Air Results Labs Labs: Short CBC 01/03/23 Range/Units 23:10 WBC 6.6 (4.0-11.0) 10^3/uL Hgb 11.2 L (12.0-16.0) g/dL Hct 33.6 L (36.0-48.0) % Plt Count 298 (150-450) 10^3/uL BMP 01/03/23 01/04/23 23:10 04:00 Sodium 137 138 Potassium 3.3 L 2.9 L* Chloride 100 104 Carbon Dioxide 27.3 26.2 BUN 7.0 5.0 L Creatinine 0.67 0.50 L Glucose 396 H 253 H Calcium 8.7 7.8 L Liver Function 01/03/23 01/04/23 Range/Units 23:10 04:00 Total Bilirubin 0.5 0.3 (0.2-1.0) mg/dL AST 13 L 11 L (15-37) U/L ALT 17 15 (14-59) U/L Alkaline Phosphatase 132 H 104 (46-116) U/L Albumin 2.7 L 2.1 L (3.4-5.0) g/dL Assessment and Plan Assessment and Plan (1) Cutaneous abscess of abdominal wall: Assessment and Plan: CT of the abdomen and pelvis showed a superficial subcutaneous abdominal wall abscess in the right lower quadrant with surrounding cellulitis. Patient was admitted for IV Zosyn and vancomycin, patient failed outpatient treatment with Keflex and doxycycline. General surgery consultation for OR I and D possibly today. Patient is currently nothing by mouth negative . Coagulation studies are normal. wound culture positive for staph areus and strep agalactaie that are sensitive to vancomycin; as discussed with the patient to streamline the healing process she needs sugar control (2) Cellulitis: Assessment and Plan: see #1 (3) Open wound of third toe of left foot: Assessment and Plan: currently has dressing in place will consult wound care/podiatry (4) Hyperglycemia due to diabetes mellitus: Assessment and Plan: will start on Levemir fifteen units daily and sliding scale insulin as needed (5) Hypokalemia: Assessment and Plan: start oral potassium at 20 mEq twice a day, most likely from normal saline IV fluids (6) Diabetes: Assessment and Plan: hemoglobin A1c checked today. Has been without a glucometer and insulin and his only been taking metformin (7) Fibromyalgia: Assessment and Plan: will continue home medications (8) High cholesterol: Assessment and Plan: lipids within goal continue resuming a statin (9) Chronic pain: Assessment and Plan: continue pain control as needed (10) Hypertension: Assessment and Plan: continue losartan has been stable Plan she is a full code Lovenox for deep vein thrombosis prophylaxis given prior history of postop deep vein thrombosis Patient will be made inpatient status and is expected to stay more than two midnights General surgery consultation and probable operating room
--- NOTE | 2023-01-04 11:22 | PM.GSCN ---
History of Present Illness Consult details Narrative: janey Cervantes is a 57-year-old female who presented to the CT department last evening with progressive pain erythema and drainage of the right lower abdomen. She was seen approximately one week ago for a similar process and placed on oral antibiotics. Despite this her condition worsened and she did developed a significant amount of purulent drainage. Repeat CT of the pelvis which was reviewed showed soft tissue swelling although no definitive abscess or subcutaneous air. Patient continues to have drainage and pain today. Cultures grew and staph aureus and group B strep. She was admitted and placed on IV antibiotics and surgical consultation was requested. Review of Systems ROS Gastrointestinal Reports: abdominal pain [facility] Medical History (Updated 01/04/23 @ 11:29 by Yuliana Cisneros DO) Family History Mother Family history of diabetes mellitus Family history of stroke Family history of COPD (chronic obstructive pulmonary disease) Father Family history of diabetes mellitus Social History Within the past year, how often did you have a drink containing alcohol: never Within the past year, how many standard drinks containing alcohol did you have on a typical day: 1 or 2 Within the past year, how often did you have six or more drinks on one occasion: never Total score: 0 Score interpretation: A score less than 3 is consistent with normal alcohol consumption. Smoking status: Never smoker Second hand tobacco smoke exposure: No Non-prescribed substance use: denies use Previous occupational history: worker Known occupational exposures/hazards: No Highest level of school completed/degree received: Associate degree: academic program Do you want help with school or training: No Are you now , , , , never or living with a partner: In a typical week, how many times do you talk on the telephone with family, friends, or neighbors: 3 or more times per week How often do you get together with friends or relatives: twice per week How often do you attend orthodoxy or orthodoxy services: 1-3 times per year Do you belong to any clubs or organizations such as orthodoxy groups unions, fraternal or athletic groups, or school groups: yes Total score: 2 Score interpretation: A score of greater than or equal to 2 indicates the lowest level of social isolation. Little interest or pleasure in doing things: not at all Feeling down, depressed, or hopeless: not at all Feel stressed/tense/nervous/anxious/difficulty sleeping: not at all Due to disability, difficulty making decisions: No Do you think of yourself as: straight/heterosexual Gender Identity: female Meds Home Medications and Allergies Home Medications Medication Instructions Recorded Confirmed Type fluticasone propionate 50 2 spray intranasal .ONCE DAILY 12/29/22 01/04/23 History mcg/actuation nasal spray,suspension losartan 50 mg tablet 50 mg PO DAILY 12/29/22 01/04/23 History meloxicam 15 mg tablet 15 mg PO DAILY 12/29/22 01/04/23 History metformin 1,000 mg tablet 1,000 mg PO .twice daily 12/29/22 01/04/23 History pregabalin 100 mg capsule 100 mg PO Q12H 12/29/22 01/04/23 History rosuvastatin 20 mg tablet 20 mg PO DAILY 12/29/22 01/04/23 History cephalexin 500 mg capsule 500 mg PO QID 01/04/23 01/04/23 History doxycycline monohydrate 100 mg 100 mg PO BID 01/04/23 01/04/23 History capsule Allergies Allergy/AdvReac Type Severity Reaction Status Date / Time No Known Drug Allergies Allergy Verified 12/29/22 19:49 Exam Constitutional Vital Signs - 24 hr 01/03/23 22:54 01/03/23 22:55 01/03/23 22:55 Temperature 98.4 F Pulse Rate Pulse Rate [Monitor] 58 L Respiratory Rate 18 Blood Pressure 161/90 H 161/90 H Blood Pressure [Right Arm] 161/90 H Pulse Oximetry 100 99 82 L Oxygen Delivery Method Room Air 01/04/23 01:52 01/04/23 02:00 01/04/23 02:24 Temperature 97.9 F Pulse Rate 79 Pulse Rate [Monitor] Respiratory Rate 20 Blood Pressure 124/68 H 126/64 H Blood Pressure [Right Arm] 123/74 H Pulse Oximetry 95 99 98 Oxygen Delivery Method Room Air 01/04/23 02:24 01/04/23 05:04 Temperature 98.1 F Pulse Rate 70 Pulse Rate [Monitor] Respiratory Rate 18 Blood Pressure Blood Pressure [Right Arm] 115/67 Pulse Oximetry 98 95 Oxygen Delivery Method Room Air Room Air Common normals: no apparent distress General appearance: cooperative Nutritional appearance: obese morbidly obese GI Other: there is marked erythema with purulent drainage draining from a right lower quadrant soft tissue fullness consistent with an abscess Neuro Common normals: oriented x3 Sensorium/orientation: awake and alert Psych Common normals: mental status grossly normal Results Labs Labs: Abnormal lab results 01/03/23 01/04/23 01/04/23 Range/Units 23:10 02:38 04:00 RBC 3.79 L (4.20-5.40) 10^6/uL Hgb 11.2 L (12.0-16.0) g/dL Hct 33.6 L (36.0-48.0) % Abs Immat Gran (auto) 0.05 H (0.00-0.03) 10^3/uL Imm/Tot Granulo (auto) 0.8 H (0.0-0.5) % Potassium 3.3 L 2.9 L* (3.5-5.1) mmol/L BUN 5.0 L (7.0-18.0) mg/dL Creatinine 0.50 L (0.55-1.02) mg/dL Glucose 396 H 253 H (74-106) mg/dL Hemoglobin A1c 12.9 H (4.5-6.2) % Calcium 7.8 L (8.5-10.1) mg/dL AST 13 L 11 L (15-37) U/L Alkaline Phosphatase 132 H (46-116) U/L Total Protein 6.3 L 5.2 L (6.4-8.2) g/dL Albumin 2.7 L 2.1 L (3.4-5.0) g/dL Prealbumin 8.3 L (20.9-45.5) mg/dL POC Glucose 292 H (74-106) mg/dL 01/04/23 01/04/23 Range/Units 08:16 11:04 RBC (4.20-5.40) 10^6/uL Hgb (12.0-16.0) g/dL Hct (36.0-48.0) % Abs Immat Gran (auto) (0.00-0.03) 10^3/uL Imm/Tot Granulo (auto) (0.0-0.5) % Potassium (3.5-5.1) mmol/L BUN (7.0-18.0) mg/dL Creatinine (0.55-1.02) mg/dL Glucose (74-106) mg/dL Hemoglobin A1c (4.5-6.2) % Calcium (8.5-10.1) mg/dL AST (15-37) U/L Alkaline Phosphatase (46-116) U/L Total Protein (6.4-8.2) g/dL Albumin (3.4-5.0) g/dL Prealbumin (20.9-45.5) mg/dL POC Glucose 240 H 203 H (74-106) mg/dL Diabetes panel 01/03/23 01/04/23 Range/Units 23:10 04:00 Sodium 137 138 (136-145) mmol/L Potassium 3.3 L 2.9 L* (3.5-5.1) mmol/L Chloride 100 104 (98-107) mmol/L Carbon Dioxide 27.3 26.2 (21.0-32.0) mmol/L BUN 7.0 5.0 L (7.0-18.0) mg/dL Creatinine 0.67 0.50 L (0.55-1.02) mg/dL Glucose 396 H 253 H (74-106) mg/dL Hemoglobin A1c 12.9 H (4.5-6.2) % Calcium 8.7 7.8 L (8.5-10.1) mg/dL AST 13 L 11 L (15-37) U/L ALT 17 15 (14-59) U/L Alkaline Phosphatase 132 H 104 (46-116) U/L Total Protein 6.3 L 5.2 L (6.4-8.2) g/dL Albumin 2.7 L 2.1 L (3.4-5.0) g/dL Calcium panel 01/03/23 01/04/23 Range/Units 23:10 04:00 Calcium 8.7 7.8 L (8.5-10.1) mg/dL Albumin 2.7 L 2.1 L (3.4-5.0) g/dL Pituitary panel 01/03/23 01/04/23 Range/Units 23:10 04:00 Sodium 137 138 (136-145) mmol/L Potassium 3.3 L 2.9 L* (3.5-5.1) mmol/L Chloride 100 104 (98-107) mmol/L Carbon Dioxide 27.3 26.2 (21.0-32.0) mmol/L BUN 7.0 5.0 L (7.0-18.0) mg/dL Creatinine 0.67 0.50 L (0.55-1.02) mg/dL Glucose 396 H 253 H (74-106) mg/dL Calcium 8.7 7.8 L (8.5-10.1) mg/dL Adrenal panel 01/03/23 01/04/23 Range/Units 23:10 04:00 Sodium 137 138 (136-145) mmol/L Potassium 3.3 L 2.9 L* (3.5-5.1) mmol/L Chloride 100 104 (98-107) mmol/L Carbon Dioxide 27.3 26.2 (21.0-32.0) mmol/L BUN 7.0 5.0 L (7.0-18.0) mg/dL Creatinine 0.67 0.50 L (0.55-1.02) mg/dL Glucose 396 H 253 H (74-106) mg/dL Calcium 8.7 7.8 L (8.5-10.1) mg/dL Total Bilirubin 0.5 0.3 (0.2-1.0) mg/dL AST 13 L 11 L (15-37) U/L ALT 17 15 (14-59) U/L Alkaline Phosphatase 132 H 104 (46-116) U/L Total Protein 6.3 L 5.2 L (6.4-8.2) g/dL Albumin 2.7 L 2.1 L (3.4-5.0) g/dL All other labs normal. Imaging Abdomen CT scan report/results: image reviewed Assessment and Plan Assessment and Plan (1) Cellulitis: (2) Hyperglycemia due to diabetes mellitus: (3) Abdominal wall abscess: Assessment and Plan: With the above findings I recommended proceeding with incision and drainage of the right lower quadrant abdominal wall abscess. The risks benefits options and complications of the procedure were discussed in detail with the patient and she agrees to proceed. (4) Diabetes: (5) Fibromyalgia: (6) High cholesterol: (7) Chronic pain:
--- NOTE | 2023-01-04 12:36 | PC.NURSE ---
Bulky Dressing to right lower abdomen is clean dry and intact. No strike through is noted on dressing.
--- NOTE | 2023-01-04 12:53 | PC.NURSE ---
Bulky dressing continues clean dry and intact to right lower abdomen. No strike through noted to dressing.
--- NOTE | 2023-01-04 13:08 | P.GSPRC_ITS ---
Date of procedure: 01/04/23 Indications for Procedure: Patient is a 57-year-old female, poorly controlled diabetic who presents emergency department yesterday with increasing pain and erythema and drainage of the right lower abdominal wall. This was consistent with a prominent subcutaneous abscess. She was placed on IV antibiotics. Surgical consultation was obtained. Pre-op diagnosis: Right lower abdominal wall abscess, wound Post-op diagnosis: same Procedure: Incision and drainage and debridement of right lower abdominal wall abscess/wound [facility] Surgeon: Familia Morillo Procedure Summary: Patient brought to the operating room placed in supine position. Gen. anesthesia was induced the patient was admitted. She is receiving IV antibiotics since her admission. There is an area of necrotic skin in the right lower quadrant. This was entered bluntly with dissection into an abscess cavity. Wound cultures were obtained. The remaining purulent fluid was aspirated. The cavity was copiously irrigated and aspirated. The remaining necrotic skin and some underlying tissue was excised sharply. Pre-debridement measurements were 4.0 cm x 2.5 cm x 0 cm. Post-debridement measurements were 4.0 x 2.5 cm x 4.0 cm. The underlying subcutaneous tissue was also debrided sharply with sharp curet with some adipose tissue and slough removed. The cavity was again irrigated and aspirated. Hemostasis was noted. The wound was packed with 2 inch iodoform gauze. Sterile dressing was applied. The patient tolerated the procedure well and was transf erred to the recovery area in stable condition. Estimated blood loss (mL): 5 Specimens: Cultures Complications: No
[2023-01-04] MEDS: ENOXAPARIN SODIUM 40 MG/0.4 ML SYRINGE SUBQ (13:21)
[2023-01-04] MEDS: VANCOMYCIN HCL 1,250 MG in 0.9 % SODIUM CHLORIDE 250 ML 250 MG IV (16:00)
[2023-01-04 16:07] LABS: Glucometer 209 mg/dL (74-106)
[2023-01-04 19:51] LABS: Glucometer 351 mg/dL (74-106)
[2023-01-04] MEDS: INSULIN DETEMIR 300 UNIT/3 ML INSULN.PEN 15 UNIT SUBQ (21:22)
[2023-01-05] VITALS (7 sets, daily range): BP systolic 100–113; BP diastolic 55–71; PULSE 78–86; RESP 20; TEMP 36.8–37.2; O2SAT 94–98; BMI 34.8
[2023-01-05] MEDS: PIPERACILLIN SODIUM/TAZOBACTAM 3.375 GM in 0.9 % SODIUM CHLORIDE 50 ML IV ×3 (00:10→17:07)
[2023-01-05] MEDS: VANCOMYCIN HCL 1,250 MG in 0.9 % SODIUM CHLORIDE 250 ML 250 MG IV ×2 (02:12→15:23)
[2023-01-05 05:05] LABS: Basophils Percent Auto 0.6 % (0.2-2.0); Eosinophils Absolute Auto 0.4 10^3/uL (0.0-0.7); Eosinophils Percent Auto 6.2 % (0.9-7.0); Hematocrit 29.9 % (36.0-48.0); Hemoglobin 9.4 g/dL (12.0-16.0); Immature Granulocytes Abs Auto 0.05 10^3/uL (0.00-0.03); Immature Granulocytes Pct Auto 0.8 % (0.0-0.5); Lymphocytes Absolute Auto 1.5 10^3/uL (1.2-3.8); Lymphocytes Percent Auto 23.6 % (20.5-60.0); Mean Corpuscular HGB Conc 31.4 g/dL (29.9-35.2); Mean Corpuscular Hemoglobin 29.8 pg (26.7-34.0); Mean Corpuscular Volume 94.9 fL (81.0-99.0); Mean Platelet Volume 9.5 fL (9.5-13.5); Monocytes Absolute Auto 0.8 10^3/uL (0.3-0.8); Neutrophils Absolute Auto 3.6 10^3/uL (1.4-6.5); Neutrophils Percent Auto 56.8 % (43.0-75.0); Platelet Count 254 10^3/uL (150-450); Red Blood Count 3.15 10^6/uL (4.20-5.40); White Blood Count 6.3 10^3/uL (4.0-11.0)
[2023-01-05 05:22] LABS: Alanine Aminotransferase 15 U/L (14-59); Albumin Globulin Ratio 0.7; Albumin Level 1.9 g/dL (3.4-5.0); Alkaline Phosphatase 94 U/L (46-116); Anion Gap 8.5; Aspartate Amino Transferase 10 U/L (15-37); Bilirubin Total 0.3 mg/dL (0.2-1.0); Calcium 7.8 mg/dL (8.5-10.1); Carbon Dioxide 28.8 mmol/L (21.0-32.0); Chloride 107 mmol/L (98-107); Estimated GFR (African America >60 (>=60); Estimated GFR (Non-African Ame >60 (>=60); Globulin 2.8 g/dL; Glucose 194 mg/dL (74-106); Potassium 3.3 mmol/L (3.5-5.1); Sodium 141 mmol/L (136-145); Total Protein 4.7 g/dL (6.4-8.2)
[2023-01-05] MEDS: ENOXAPARIN SODIUM 40 MG/0.4 ML SYRINGE SUBQ (09:39)
[2023-01-05] MEDS: FLUTICASONE PROPIONATE 50 MCG NASAL SPRAY 2 SPRAY NS (09:39)
[2023-01-05] MEDS: POTASSIUM CHLORIDE 10 MEQ ER TABLET 20 MEQ PO ×2 (09:39→16:20)
[2023-01-05] MEDS: MELOXICAM 7.5 MG TABLET 15 MG PO (09:40)
[2023-01-05] MEDS: LOSARTAN POTASSIUM 50 MG TABLET PO (09:40)
[2023-01-05] MEDS: OMEPRAZOLE 40 MG CAPSULE.DR PO (09:41)
[2023-01-05] MEDS: PREGABALIN 100 MG CAPSULE PO ×2 (09:43→21:18)
[2023-01-05] MEDS: HYDROCODONE/ACETAMINOPHEN 5-325 MG TABLET 1 TAB PO ×3 (09:44→21:18)
--- NOTE | 2023-01-05 10:46 | PM.GSPN ---
Progress Note: A&P Assessment and Plan (1) Cutaneous abscess of abdominal wall: Assessment and Plan: patient is stable from a surgical standpoint. Will likely need home health for dressing assistance. She may be discharged from a surgical standpoint when medically stable, will decrease dressing changes to once daily (2) Cellulitis: (3) Open wound of third toe of left foot: (4) Hyperglycemia due to diabetes mellitus: (5) Hypokalemia: (6) Diabetes: (7) Fibromyalgia: (8) High cholesterol: (9) Chronic pain: (10) Hypertension: Subjective Subjective Interval history: patient feels okay, some discomfort with dressing changes Exam Narrative Exam Narrative: I and D site clean, packing in place, no evidence of progression of infection Constitutional Vital Signs - 24 hr 01/04/23 12:24 01/04/23 12:34 01/04/23 12:54 Temperature 97.2 F L Pulse Rate 83 74 Respiratory Rate 17 15 Blood Pressure 106/63 99/55 L Blood Pressure [Right Arm] Pulse Oximetry 93 L 96 Oxygen Delivery Method Room Air Room Air Room Air 01/04/23 12:26 01/04/23 12:27 01/04/23 12:30 Temperature Pulse Rate 84 82 82 Respiratory Rate 16 14 17 Blood Pressure 106/63 105/62 Blood Pressure [Right Arm] Pulse Oximetry 94 L 93 L 94 L Oxygen Delivery Method 01/04/23 12:35 01/04/23 12:40 01/04/23 12:45 Temperature Pulse Rate 81 79 77 Respiratory Rate 14 16 15 Blood Pressure 99/53 L 102/54 L 100/54 L Blood Pressure [Right Arm] Pulse Oximetry 97 96 96 Oxygen Delivery Method 01/04/23 12:50 01/04/23 13:44 01/04/23 17:11 Temperature 98.2 F Pulse Rate 77 75 Respiratory Rate 16 18 Blood Pressure 100/56 L Blood Pressure [Right Arm] 118/64 Pulse Oximetry 97 94 L 95 Oxygen Delivery Method Room Air Room Air 01/04/23 19:52 01/04/23 20:32 01/05/23 04:17 Temperature 98.2 F Pulse Rate 75 Respiratory Rate 18 Blood Pressure Blood Pressure [Right Arm] 95/61 Pulse Oximetry 93 L 97 94 L Oxygen Delivery Method Room Air Room Air Room Air 01/05/23 05:59 06/23/23 10:33 Temperature 99 F Pulse Rate 86 Respiratory Rate 20 Blood Pressure Blood Pressure [Right Arm] 113/71 Pulse Oximetry 94 L 94 L Oxygen Delivery Method Room Air Room Air
[2023-01-05 11:11] LABS: Glucometer 385 mg/dL (74-106)
--- NOTE | 2023-01-05 11:33 | CM.NOTE ---
Rounds made with Dr. Cisneros, no discharge for today. Possible d/c of pt tomorrow. Pt denies any discharge needs. Pt will f/u with Dr. Solano as outpt and also PCP. Will follow pt on needs for wound care and drsg changes.
[2023-01-05] MEDS: INSULIN ASPART 300 UNIT/3 ML PEN SUBQ ×3 (12:07→21:20)
--- NOTE | 2023-01-05 12:17 | CM.NOTE ---
Discussed with pt about home dressing changes and her comfort level. Pt states I will not be able to change my own dressing. SW is going to set up HH for pt. Dr. Carmen did change drsg change to daily. Explained with pt that HH would work with her at home for teaching of drsg changes to increase comfort level. Pt voices her concern is the pain. Discussed with pt about medicating 30 minutes prior to dressing changes. Talked with pt also regarding home insulin and her comfort level giving herself injections. Pt voices comfort, states she has had insulin in the past and administered herself. HOLLY checking on services for pt.
--- NOTE | 2023-01-05 12:22 | P.PN_ITS ---
Progress Note: Subjective Subjective Interval history: patient is a 57-year-old female with past medical history of uncontrolled type 2 diabetes, hypertension, hyperlipidemia. Patient reports that she was supposed to be on insulin but could not afford it. Since that time her sugars have been high but she also reports she does not have a working glucometer at home. Over the course of the last week she has been seen a pile driving technician in [place] for a left toe wound most recently this past Sunday she reports she had to have it packed and dressed. She was wearing steel toed boots at work and the rubbing cause the wound. Also on the at this month she visited the Emergency Room for a boil on her lower right abdomen and was treated with Keflex and doxycycline. The patient reports that the boil began to use and continues to abuse but has become more painful red and unbearable to touch. Patient therefore was admitted for an acute abdominal abscess with cellulitis and wound culture from 12/29/2022 showed staph areus and strep atalactaie. she denies any fevers or chills just notes some discomfort to that right abdominal area. She notes she has had surgeries in the past a , and abdominal fistula repair, which resulted in a treatment for deep vein thrombosis postop, and a cholecystectomy. She reports anesthesia makes her nauseous but no other complications with surgeries. She went to the OR yesterday for I&D, today the wound is packed, dressing is c/d/i, she reports no fevers overnight, but some pain today at incision site. No other issues or complaints. Exam Narrative Exam Narrative: General: Patient is alert, and oriented to person, place and time with normal affect, proper hygiene Skin: the abscess has dressing placed that is c/d/i Head: atraumatic, acephalic Eyes: PERRLA, no nystagmus present, conjunctiva clear, no scleral icterus Ears: normal gross auditory acuity Heart: Normal rate and rhythm, no murmurs/rubs/gallops Lungs: no audible wheezes, crackles and normal breath sounds all lung butcher Abdomen: Normal audible bowel sounds, no distension, No palpable masses, no organomegaly, no rebound/guarding/ or rigidity see the skin exam listed above Musculoskeletal: no swelling bilateral lower extremities, Vascular: Normal carotid, radial, femoral, posterior tibial, and dorsalis pedis pulses Lymph: no supraclavicular, axillary, or anterior/posterior cervical adenopathy Neuro: CN II-X grossly intact, normal sensation upper and lower extremities Constitutional Vital Signs - 24 hr 01/04/23 12:24 01/04/23 12:34 01/04/23 12:54 Temperature 97.2 F L Pulse Rate 83 74 Respiratory Rate 17 15 Blood Pressure 106/63 99/55 L Blood Pressure [Right Arm] Pulse Oximetry 93 L 96 Oxygen Delivery Method Room Air Room Air Room Air 01/04/23 12:26 01/04/23 12:27 01/04/23 12:30 Temperature Pulse Rate 84 82 82 Respiratory Rate 16 14 17 Blood Pressure 106/63 105/62 Blood Pressure [Right Arm] Pulse Oximetry 94 L 93 L 94 L Oxygen Delivery Method 01/04/23 12:35 01/04/23 12:40 01/04/23 12:45 Temperature Pulse Rate 81 79 77 Respiratory Rate 14 16 15 Blood Pressure 99/53 L 102/54 L 100/54 L Blood Pressure [Right Arm] Pulse Oximetry 97 96 96 Oxygen Delivery Method 01/04/23 12:50 01/04/23 13:44 01/04/23 17:11 Temperature 98.2 F Pulse Rate 77 75 Respiratory Rate 16 18 Blood Pressure 100/56 L Blood Pressure [Right Arm] 118/64 Pulse Oximetry 97 94 L 95 Oxygen Delivery Method Room Air Room Air 01/04/23 19:52 01/04/23 20:32 01/05/23 04:17 Temperature 98.2 F Pulse Rate 75 Respiratory Rate 18 Blood Pressure Blood Pressure [Right Arm] 95/61 Pulse Oximetry 93 L 97 94 L Oxygen Delivery Method Room Air Room Air Room Air 01/05/23 05:59 01/05/23 10:33 Temperature 99 F Pulse Rate 86 Respiratory Rate 20 Blood Pressure Blood Pressure [Right Arm] 113/71 Pulse Oximetry 94 L 94 L Oxygen Delivery Method Room Air Room Air Progress Note: Objective Labs Labs: Short CBC 01/05/23 Range/Units 03:56 WBC 6.3 (4.0-11.0) 10^3/uL Hgb 9.4 L (12.0-16.0) g/dL Hct 29.9 L (36.0-48.0) % Plt Count 254 (150-450) 10^3/uL BMP 01/05/23 03:56 Sodium 141 Potassium 3.3 L Chloride 107 Carbon Dioxide 28.8 BUN 7.0 Creatinine 0.70 Glucose 194 H Calcium 7.8 L Liver Function 01/05/23 Range/Units 03:56 Total Bilirubin 0.3 (0.2-1.0) mg/dL AST 10 L (15-37) U/L ALT 15 (14-59) U/L Alkaline Phosphatase 94 (46-116) U/L Albumin 1.9 L (3.4-5.0) g/dL Progress Note: A&P Assessment and Plan (1) Cutaneous abscess of abdominal wall: Assessment and Plan: CT of the abdomen and pelvis showed a superficial subcutaneous abdominal wall abscess in the right lower quadrant with surrounding cellulitis. Patient was admitted for IV Zosyn and vancomycin, patient failed outpatient treatment with Keflex and doxycycline. General surgery consultation for OR I and D and POD #1, wound culture positive for staph areus and strep agalactaie that are sensitive to vancomycin this was from prior visit, cultures from the OR are pending. continue vanc and rocephin. Surgery following. (2) Cellulitis: Assessment and Plan: see #1 (3) Open wound of third toe of left foot: Assessment and Plan: currently has dressing in place will consult wound care/podiatry (4) Hyperglycemia due to diabetes mellitus: Assessment and Plan: Levemir fifteen units daily and sliding scale insulin as needed, ha1c was 12.7 she was just taking metformin; rx's on chart for home glucometer, strips, lancets and pen needles, will need to send in Rx for Levemir at discharge as this is new med. (5) Hypokalemia: Assessment and Plan: improved today on oral replacement (6) Diabetes: Assessment and Plan: see #4 (7) Fibromyalgia: Assessment and Plan: will continue home medications (8) High cholesterol: Assessment and Plan: lipids within goal continue statin (9) Chronic pain: Assessment and Plan: continue pain control as needed (10) Hypertension: Assessment and Plan: continue losartan has been stable Plan she is a full code Lovenox for deep vein thrombosis prophylaxis given prior history of postop deep vein thrombosis Patient will be made inpatient status and is expected to stay more than two midnights General surgery consultation, POD #1
--- NOTE | 2023-01-05 13:00 | SWNOTE1 ---
HOLLY spoke with pt about HH sevices coming in to assist with her wound. Pt is open to this and voices understanding that they cannot come in everyday and she has to learn the dressing changes, SW reviewed medicare.gov star rating HH list with pt and she wants [facility]. SW looked over pt's insurance and it was not a common one. SW called pt's insurance to check her home health coverage. At this time pt does not have home health coverage. SW let pt know and spoke with her about possibility of being self pay and paying for HH out of pocket. She is open to this. SW to call [facility]. Pt also inquired about medicaid and stated she applied in past and did not qualify, but she is not working right now and not sure when she will go back. HOLLY printed off medicaid application for pt to complete. SW call 5 HH companies to check on self pay pt's. [facility] does not accept, [facility] is $300 per visit, [facility] is $150, [facility] only does private pay for aides, and [facility] will call us back. At this time SW to check back with pt in regards to the amount it would cost.
--- NOTE | 2023-01-05 13:05 | PM.PODCN1 ---
[facility] - Podiatry Data of Consult Patient: new to practice Consult date: 01/05/23 Requesting physician: Yuliana Cisneros DO Primary care provider: JESSE QIU Consult Narrative Reason for consult: Left forefoot wound Narrative: patient is a 57-year-old female who is seen as a consult today for concern of left foot wound, past medical history includes uncontrolled type 2 diabetes, hypertension, hyperlipidemia as well as a abdominal wound. Patient was taken to the operating room yesterday for irrigation debridement of this abdominal wound. Patient states that she saw a vp digital marketing in [place] Dr. Valerio for her left forefoot wound which started out as a blister which was rubbing in her steel toed boots at work. States Dr. Valerio took the roof of the blister and applied a gauze dressing. She states she has been taking Keflex and doxycycline outpatient antibiotics for both her stomach and her foot. States that she has had some wounds in the past on her right foot directly to her 5th digit that this is her 1st wound on her left foot. States she typically has some lower showed the swelling. States that the dressing that Dr. Valerio put on her foot a week ago has never been changed because she was never able to get it off and it is now well adhered to her skin and she worried that it will hurt to get removed so she has left it. Denies any other pedal complaints denies constitutional symptoms. cc:: CC: Yuliana Cisneros DO Review of Systems ROS Status of ROS 10 or more systems reviewed and unremarkable except as noted in history and below PFSH PFS Medical History Family History Mother Family history of diabetes mellitus Family history of stroke Family history of COPD (chronic obstructive pulmonary disease) Father Family history of diabetes mellitus Social History Within the past year, how often did you have a drink containing alcohol: never Within the past year, how many standard drinks containing alcohol did you have on a typical day: 1 or 2 Within the past year, how often did you have six or more drinks on one occasion: never Total score: 0 Score interpretation: A score less than 3 is consistent with normal alcohol consumption. Smoking status: Never smoker Second hand tobacco smoke exposure: No Non-prescribed substance use: denies use Previous occupational history: worker Known occupational exposures/hazards: No Highest level of school completed/degree received: Associate degree: academic program Do you want help with school or training: No Are you now , , , , never or living with a partner: In a typical week, how many times do you talk on the telephone with family, friends, or neighbors: 3 or more times per week How often do you get together with friends or relatives: twice per week How often do you attend sabianist or restoration services: 1-3 times per year Do you belong to any clubs or organizations such as sabianist groups unions, [employer] or athletic groups, or school groups: yes Total score: 2 Score interpretation: A score of greater than or equal to 2 indicates the lowest level of social isolation. Little interest or pleasure in doing things: not at all Feeling down, depressed, or hopeless: not at all Feel stressed/tense/nervous/anxious/difficulty sleeping: not at all Due to disability, difficulty making decisions: No Do you think of yourself as: straight/heterosexual Gender Identity: female Exam Narrative Exam Narrative: dermatological: Superficial wound noted to the dorsal aspect of her left 3rd digit, fibrous and granular base, minimal surrounding erythema, no drainage, no probe to bone, no exposed tendon, painful to palpation Previously healed wound is noted to the lateral aspect of her right 5th digit No other open lesions or breaks in the skin Diffuse lower extremity edema noted bilaterally Vascular: Pulses nonpalpable due to edema Lower extremity edema noted capillary refill intact Extremity warm to touch Musculoskeletal Strength intact and symmetrical Range of motion without discomfort Pain to palpation of her wound as discussed above No pain with calf compression Compartment soft and compressible Nerve: sensation intact to light touch Constitutional Vital Signs - 24 hr 01/04/23 13:44 01/04/23 17:11 01/04/23 19:52 Temperature 98.2 F Pulse Rate 75 Respiratory Rate 18 Blood Pressure [Right Arm] 118/64 Pulse Oximetry 94 L 95 93 L Oxygen Delivery Method Room Air Room Air Room Air 01/04/23 20:32 01/05/23 04:17 01/05/23 05:59 Temperature 98.2 F 99 F Pulse Rate 75 86 Respiratory Rate 18 20 Blood Pressure [Right Arm] 95/61 113/71 Pulse Oximetry 97 94 L 94 L Oxygen Delivery Method Room Air Room Air Room Air 01/05/23 10:33 Temperature Pulse Rate Respiratory Rate Blood Pressure [Right Arm] Pulse Oximetry 94 L Oxygen Delivery Method Room Air Assessment and Plan Assessment and Plan (1) Cutaneous abscess of abdominal wall: Assessment and Plan: CT of the abdomen and pelvis showed a superficial subcutaneous abdominal wall abscess in the right lower quadrant with surrounding cellulitis. Patient was admitted for IV Zosyn and vancomycin, patient failed outpatient treatment with Keflex and doxycycline. General surgery consultation for OR I and D possibly today. Patient is currently nothing by mouth negative . Coagulation studies are normal. wound culture positive for staph areus and strep agalactaie that are sensitive to vancomycin; as discussed with the patient to streamline the healing process she needs sugar control (2) Cellulitis: Assessment and Plan: see #1 (3) Open wound of third toe of left foot: Assessment and Plan: currently has dressing in place will consult wound care/podiatry (4) Hyperglycemia due to diabetes mellitus: Assessment and Plan: will start on Levemir fifteen units daily and sliding scale insulin as needed (5) Hypokalemia: Assessment and Plan: start oral potassium at 20 mEq twice a day, most likely from normal saline IV fluids (6) Diabetes: Assessment and Plan: hemoglobin A1c checked today. Has been without a glucometer and insulin and his only been taking metformin (7) Fibromyalgia: Assessment and Plan: will continue home medications (8) High cholesterol: Assessment and Plan: lipids within goal continue resuming a statin (9) Chronic pain: Assessment and Plan: continue pain control as needed (10) Hypertension: Assessment and Plan: continue losartan has been stable Plan assessment: Superficial ulcer to the dorsal left foot Diffuse large of the edema Diabetes mellitus Plan: Patient seen and evaluated Physical exam findings discussed with the patient Labs and vitals reviewed, no leukocytosis Unfortunately the patient has left this dressing on for over a week now and it has become well adhered to her skin and wound and I believe it is causing local irritation to her skin. After consent was obtained and did soak it and normal saline and removed it. This was quite uncomfortable for the patient did express the importance of removing bandaging to prevent further irritation or infection I did replace bandaging with Xeroform and dry gauze and discussed that this dressing is less likely to stick we should change it frequently She is in agreement with that plan This wound does not particularly look deep I believe will heal up now that there is no pressure or bandage attached She is wearing compression hose for her swelling which I agree with She is taking antibiotics for her abdominal wound, vancomycin and Zosyn, I believe these antibiotics would cover any sort of bacteria that may have infected her toe although the small amount of redness i see think is secondary to irritation from the dressing and not cellulitis she should get a postoperative shoe to walk in to prevent rubbing She may call questions or concerns She may follow up with us in our wound center or with Dr. Valerio Thank you for this consult
[2023-01-05 14:39] LABS: Vancomycin Trough 10.8 ug/mL (5.0-20.0)
--- NOTE | 2023-01-05 15:08 | SWNOTE1 ---
SW spoke with Clare director of floor and Kim director of case management in regards to pt's wound care. She does not have insurance that covers Home health and she cannot afford private pay. Checking into pt coming as an AUB[facility]Y pt for wound care.
--- NOTE | 2023-01-05 16:03 | CM.NOTE ---
[facility] form completed for pt to come in hospital for daily drsg change to wound until pt able to f/u with Dr. Carmen in office. Spoke with pt's nurse KYLE Dillard to make sure that was communicated to pt and drsg supplies that were already open at bedside would be packed in a bin with pt's name for [facility] clinic to continue drsg changes.
--- NOTE | 2023-01-05 16:08 | SWNOTE1 ---
Pt is coming in as an AUBREY pt for wound care. Form filled out by nursing/case management and sent to registration.
[2023-01-05 16:26] LABS: Glucometer 301 mg/dL (74-106)
[2023-01-05 20:21] LABS: Glucometer 341 mg/dL (74-106)
[2023-01-05] MEDS: INSULIN DETEMIR 300 UNIT/3 ML INSULN.PEN 15 UNIT SUBQ (21:20)
[2023-01-06] MEDS: PIPERACILLIN SODIUM/TAZOBACTAM 3.375 GM in 0.9 % SODIUM CHLORIDE 50 ML IV ×2 (00:42→08:44)
[2023-01-06] MEDS: VANCOMYCIN HCL 1,250 MG in 0.9 % SODIUM CHLORIDE 250 ML 250 MG IV ×2 (02:36→14:04)
[2023-01-06] MEDS: HYDROCODONE/ACETAMINOPHEN 5-325 MG TABLET 1 TAB PO ×2 (05:01→14:04)
[2023-01-06 05:17] LABS: Basophils Percent Auto 0.5 % (0.2-2.0); Eosinophils Absolute Auto 0.5 10^3/uL (0.0-0.7); Eosinophils Percent Auto 7.5 % (0.9-7.0); Hematocrit 31.5 % (36.0-48.0); Hemoglobin 10.1 g/dL (12.0-16.0); Immature Granulocytes Abs Auto 0.08 10^3/uL (0.00-0.03); Immature Granulocytes Pct Auto 1.3 % (0.0-0.5); Lymphocytes Absolute Auto 1.1 10^3/uL (1.2-3.8); Lymphocytes Percent Auto 17.5 % (20.5-60.0); Mean Corpuscular HGB Conc 32.1 g/dL (29.9-35.2); Mean Corpuscular Hemoglobin 29.8 pg (26.7-34.0); Mean Corpuscular Volume 92.9 fL (81.0-99.0); Mean Platelet Volume 9.2 fL (9.5-13.5); Monocytes Absolute Auto 0.7 10^3/uL (0.3-0.8); Monocytes Percent Auto 10.7 % (1.7-12.0); Neutrophils Absolute Auto 3.9 10^3/uL (1.4-6.5); Neutrophils Percent Auto 62.5 % (43.0-75.0); Platelet Count 269 10^3/uL (150-450); Red Blood Count 3.39 10^6/uL (4.20-5.40); Red Cell Distribution Width 14.7 % (11.0-15.0); White Blood Count 6.2 10^3/uL (4.0-11.0)
[2023-01-06 05:22] VITALS: O2SAT 96
[2023-01-06 05:24] LABS: Alanine Aminotransferase 14 U/L (14-59); Albumin Globulin Ratio 0.6; Alkaline Phosphatase 97 U/L (46-116); Aspartate Amino Transferase 13 U/L (15-37); BUN Creatinine Ratio 8.2; Bilirubin Total 0.3 mg/dL (0.2-1.0); Calcium 8.3 mg/dL (8.5-10.1); Carbon Dioxide 27.5 mmol/L (21.0-32.0); Chloride 108 mmol/L (98-107); Estimated GFR (African America >60 (>=60); Estimated GFR (Non-African Ame 58 (>=60); Globulin 3.2 g/dL; Glucose 210 mg/dL (74-106); Potassium 3.5 mmol/L (3.5-5.1); Sodium 142 mmol/L (136-145); Total Protein 5.2 g/dL (6.4-8.2)
[2023-01-06 06:00] VITALS: BP 110/71; PULSE 84; RESP 16; TEMP 37.4; O2SAT 95
[2023-01-06] MEDS: INSULIN ASPART 300 UNIT/3 ML PEN SUBQ ×2 (08:44→11:46)
[2023-01-06] MEDS: FLUTICASONE PROPIONATE 50 MCG NASAL SPRAY 2 SPRAY NS (08:44)
[2023-01-06] MEDS: MELOXICAM 7.5 MG TABLET 15 MG PO (08:45)
[2023-01-06] MEDS: ENOXAPARIN SODIUM 40 MG/0.4 ML SYRINGE SUBQ (08:45)
[2023-01-06] MEDS: OMEPRAZOLE 40 MG CAPSULE.DR PO (08:45)
[2023-01-06] MEDS: POTASSIUM CHLORIDE 10 MEQ ER TABLET 20 MEQ PO (08:45)
[2023-01-06] MEDS: LOSARTAN POTASSIUM 50 MG TABLET PO (08:45)
[2023-01-06] MEDS: PREGABALIN 100 MG CAPSULE PO (08:45)
[2023-01-06 11:33] VITALS: O2SAT 100
[2023-01-06 11:48] LABS: Glucometer 287 mg/dL (74-106)
--- NOTE | 2023-01-06 13:22 | P.DS_ITS ---
DS: Providers Provider Date of admission: 01/04/23 02:21 Primary care physician: JESSE QIU Consults: 01/04/23 01:12 Consult to General Surgeon Routine Consulting Provider: Familia Morillo 01/04/23 08:33 Occupational Therapy Eval and Treat Routine Physical Therapy Eval and Treat Routine 01/05/23 09:06 Consult to Honing Machine Operator Semiautomatic Routine 01/05/23 09:07 Wound Assessment Consult Routine Consulting Provider: Hospitalist Attending physician on discharge: Shaikh Chirstel Discharging clinician: Shaikh Christel Anticipated date of discharge: 01/06/23 DS: Diagnosis Discharge Diagnosis (1) Cutaneous abscess of abdominal wall: Assessment and plan: s/p I&D. Culture positive for Klebsiella and Staph Aureus Will d/c on oral Bactrim DS. (2) Cellulitis: Assessment and plan: s/p I&D - will dc on oral Bactrim Qualifiers: Site of cellulitis: trunk Site of cellulitis of trunk: abdominal wall Qualified Code(s): L03.311 - Cellulitis of abdominal wall (3) Open wound of third toe of left foot: Assessment and plan: Following outpatient. (4) Hyperglycemia due to diabetes mellitus: Assessment and plan: Poorly controlled at baseline. Educated on compliance, diet. Will d/c on Levemir. (5) Hypokalemia: Assessment and plan: Outpaitent f/u (6) Diabetes: Assessment and plan: Poorly controlled and was apparently prescribed GLP agonists as outpatient. Will d/c on Levemir. She also needed a prescription for glucometer. Qualifiers: Diabetes mellitus type: type 2 Diabetes mellitus terminal makeup operator insulin use: without terminal makeup operator use Diabetes mellitus complication status: with other specified complication Qualified Code(s): E11.69 - Type 2 diabetes mellitus with other specified complication (7) Fibromyalgia: Assessment and plan: On Lyrica. C/w same (8) High cholesterol: Assessment and plan: C/w crestor (9) Chronic pain: Assessment and plan: On Lyrica. C/w same. Also uses Mobic (10) Hypertension: Assessment and plan: c/w Losartan Qualifiers: Hypertension type: primary hypertension Qualified Code(s): I10 - Essential (primary) hypertension DS: Summary Hospital Course Hospital Course: Presented with abdominal wall cellulitis, poorly controlled blood glucose. Admitted for IV abx - received IV vanco and rocephin. I&D by General Surgery - Cultures growing Staph Aureus and Klebsiella. Will d/c on oral Bactrim Will also need f/u with Surgery as outpatient and wound care as outpatient. Patient will be discharged on oral metformin and Levemir for T2 DM. Will need close f/u with PCP for T2 DM Her A1C was 12.9 Status at Discharge Functional status at discharge: independent ambulation Overall status at discharge: patient is back to baseline Time Spent with Patient Time attestation: Total time spent providing and/or coordinating discharge services: Time spent: greater than 30 minutes Exam Narrative Exam Narrative: General: Patient is alert, and oriented to person, place and time with normal affect Skin: the abscess has dressing placed that is c/d/i Head: atraumatic, acephalic Eyes: PERRLA, no nystagmus present, conjunctiva clear, no scleral icterus Ears: normal gross auditory acuity Heart: Normal rate and rhythm, no murmurs/rubs/gallops Lungs: no audible wheezes, crackles and normal breath sounds all lung butcher Abdomen: Normal audible bowel sounds, no distension, No palpable masses, no organomegaly, no rebound/guarding/ or rigidity see the skin exam listed above Musculoskeletal: no swelling bilateral lower extremities, Neuro: CN II-X grossly intact, normal sensation upper and lower extremities Constitutional Vital Signs - 24 hr 01/05/23 14:00 01/05/23 19:10 01/05/23 20:18 Temperature 99 F Pulse Rate 78 Respiratory Rate 20 20 Blood Pressure [Right Arm] 100/55 L Pulse Oximetry 95 94 L Oxygen Delivery Method Room Air 01/05/23 20:24 01/06/23 05:22 01/06/23 06:00 Temperature 98.2 F 99.3 F Pulse Rate 78 84 Respiratory Rate 20 16 Blood Pressure [Right Arm] 107/63 110/71 Pulse Oximetry 98 96 95 Oxygen Delivery Method Room Air Room Air Room Air 01/06/23 11:33 Temperature Pulse Rate Respiratory Rate Blood Pressure [Right Arm] Pulse Oximetry 100 Oxygen Delivery Method Room Air DS: Data Data Completed and Pending Labs on day of discharge: Labs from last 24 hours 01/06/23 01/06/23 01/05/23 11:42 04:30 20:19 WBC 6.2 RBC 3.39 L Hgb 10.1 L Hct 31.5 L MCV 92.9 MCH 29.8 MCHC 32.1 RDW 14.7 Plt Count 269 MPV 9.2 L Neut % (Auto) 62.5 Lymph % (Auto) 17.5 L [place] % (Auto) 10.7 Eos % (Auto) 7.5 H Baso % (Auto) 0.5 Neut # (Auto) 3.9 Lymph # (Auto) 1.1 L [place] # (Auto) 0.7 Eos # (Auto) 0.5 Baso # (Auto) 0.0 Abs Immat Gran (auto) 0.08 H Imm/Tot Granulo (auto) 1.3 H Sodium 142 Potassium 3.5 Chloride 108 H Carbon Dioxide 27.5 Anion Gap 10.0 BUN 8.0 Creatinine 0.98 Est GFR ( Amer) >60 Est GFR (Non-Af Amer) 58 L BUN/Creatinine Ratio 8.2 Glucose 210 H Calcium 8.3 L Total Bilirubin 0.3 AST 13 L ALT 14 Alkaline Phosphatase 97 Total Protein 5.2 L Albumin 2.0 L Globulin 3.2 Albumin/Globulin Ratio 0.6 Vancomycin Trough POC Glucose 287 H 341 H 01/05/23 01/05/23 16:24 13:08 WBC RBC Hgb Hct MCV MCH MCHC RDW Plt Count MPV Neut % (Auto) Lymph % (Auto) [place] % (Auto) Eos % (Auto) Baso % (Auto) Neut # (Auto) Lymph # (Auto) [place] # (Auto) Eos # (Auto) Baso # (Auto) Abs Immat Gran (auto) Imm/Tot Granulo (auto) Sodium Potassium Chloride Carbon Dioxide Anion Gap BUN Creatinine Est GFR ( Amer) Est GFR (Non-Af Amer) BUN/Creatinine Ratio Glucose Calcium Total Bilirubin AST ALT Alkaline Phosphatase Total Protein Albumin Globulin Albumin/Globulin Ratio Vancomycin Trough 10.8 POC Glucose 301 H Preliminary micro results at discharge 01/03/23 23:10 Wound Culture - Preliminary Abdomen Klebsiella pneumoniae 01/04/23 12:04 Wound Culture - Preliminary Abdomen Klebsiella pneumoniae Staphylococcus aureus 01/03/23 23:30 - Preliminary Blood NO GROWTH AT 36-48 HOURS. FINAL TO FOLLOW. 01/03/23 23:10 - Preliminary Blood NO GROWTH AT 36-48 HOURS. FINAL TO FOLLOW. Discharge Plan Discharge Disposition: Home, Self-Care Condition: Fair Discharge Medications: New sulfamethoxazole-trimethoprim [Bactrim DS] 800-160 mg tablet 1 tab PO BID 10 Days Qty: 20 0RF Levemir FlexPen 100 unit/mL (3 mL) insulin pen 20 unit subcut QPM Qty: 15 0RF Continued losartan 50 mg tablet 50 mg PO DAILY fluticasone propionate 50 mcg/actuation spray,suspension 2 spray INTRANASAL .ONCE DAILY meloxicam 15 mg tablet 15 mg PO DAILY metformin 1,000 mg tablet 1,000 mg PO .twice daily pregabalin 100 mg capsule 100 mg PO Q12H rosuvastatin 20 mg tablet 20 mg PO DAILY Discontinued doxycycline monohydrate 100 mg capsule 100 mg PO BID Rx Instructions: X10 DAYS - FILL DATE 12/30/2022 cephalexin 500 mg capsule 500 mg PO QID Rx Instructions: X10 DAYS - FILL DATE 12/30/2022 Activity: resume usual activities as tolerated Diet: diabetic diet Firesetter/Public Relations Player Instructions: Patient will come in as an AUBREY pt for wound care. Forms: Portal Instructions Follow Up Appointments: PCP in one week Dr Morillo in 2-3 weeks
[2023-01-06 14:00] VITALS: BP 108/66; PULSE 83; RESP 18; TEMP 36.8; O2SAT 95
--- NOTE | 2023-01-08 15:21 | CM.DCFOLLOWU ---
Person spoke with: Melody How are you feeling? Better How is your pain? good Did you understand your discharge instructions? yes Do you have any questions about your discharge instructions? No Were you given any prescriptions at discharge? Yes Were you able to get your prescriptions filled? Yes Do you understand how to take your medications as ordered? Yes Do you have any questions about your follow up appointment and do you plan to keep your follow up appointment? Ysiel scheduled on Is there anything else that you would like to discuss? No Questions/Comments/Concerns/Other:
== END 2023-01-06 16:06 | disposition home or self-care (01) | DRG 572 ==
LOC: ER 01-04 01:24 → MS 01-04 02:23
PROVIDERS: Internal Medicine; Surgery; Admitting Provider Family Medicine; Emergency Provider Emergency Medicine; PCP Internal Medicine; Visit Provider Internal Medicine
PROC: 0JB80ZZ Excision of Abdomen Subcutaneous Tissue and Fascia, Open Approach (ICD-10-PCS; principal; 2023-01-04 11:30)
DX: L02.211 Cutaneous abscess of abdominal wall (principal); L03.311 Cellulitis of abdominal wall; E11.65 Type 2 diabetes mellitus with hyperglycemia; M79.7 Fibromyalgia; E78.00 Pure hypercholesterolemia, unspecified; G89.29 Other chronic pain; E66.9 Obesity, unspecified; Z68.34 Body mass index [BMI] 34.0-34.9, adult; B96.1 Klebsiella pneumoniae [K. pneumoniae] as the cause of diseases classified elsewhere; B95.1 Streptococcus, group B, as the cause of diseases classified elsewhere; B95.61 Methicillin susceptible Staphylococcus aureus infection as the cause of diseases classified elsewhere; I10 Essential (primary) hypertension; E87.6 Hypokalemia; S91.105A Unspecified open wound of left lesser toe(s) without damage to nail, initial encounter; X50.9XXA Other and unspecified overexertion or strenuous movements or postures, initial encounter; G47.33 Obstructive sleep apnea (adult) (pediatric); J30.2 Other seasonal allergic rhinitis; R05.9 Cough, unspecified; B00.1 Herpesviral vesicular dermatitis; Z91.141 Patient's other noncompliance with medication regimen due to financial hardship; T38.3X6A Underdosing of insulin and oral hypoglycemic [antidiabetic] drugs, initial encounter; Z86.718 Personal history of other venous thrombosis and embolism; Z90.49 Acquired absence of other specified parts of digestive tract; Z98.891 History of uterine scar from previous surgery; Z98.890 Other specified postprocedural states; Z79.84 Long term (current) use of oral hypoglycemic drugs; Z79.899 Other long term (current) drug therapy; Z79.1 Long term (current) use of non-steroidal anti-inflammatories (NSAID); Z98.41 Cataract extraction status, right eye; Z98.42 Cataract extraction status, left eye; Z99.89 Dependence on other enabling machines and devices; Z83.3 Family history of diabetes mellitus; Z82.49 Family history of ischemic heart disease and other diseases of the circulatory system; Z82.5 Family history of asthma and other chronic lower respiratory diseases; Z82.3 Family history of stroke
CPT/HCPCS: 36415; 36416; 74177; 80053; 80202; 82948; 83036; 83605; 83735; 84134; 84702; 85025; 85610; 85730; 87040; 87070; 87150; 87186; 87205; 94761; 96365; 96366; 96368; 96372; 96375; 96376; 97162; 97165; 99285; 99999; J2704; J3370; Q3014; Q9967

== ENCOUNTER 2023-01-08 08:33 | Outpatient (RCR) | payer OTHER, MEDICAID, SELFPAY ==
[2023-01-08 10:00] VITALS: BP 120/76; PULSE 94; RESP 18; TEMP 36.4; O2SAT 98
--- NOTE | 2023-01-08 10:32 | PC.NURSE ---
Pt is here for dressing change on her abdomen, old dressing was removed, she tolerated well. She had some drainage from the previous packing. New Idoform gauze packing placed, covered with 4x4 gauze and an ABD and tape. She states this was tender during packing but tolerated it well. She was provided with Dr. Morillo's office number to schedule her follow up she verbalized understanding and states she will call when she gets home.
[2023-01-09 14:20] VITALS: BP 134/75; PULSE 88; RESP 18; TEMP 36.4; O2SAT 96
[2023-01-10 14:15] VITALS: BP 103/66; PULSE 84; RESP 22; TEMP 36.3; O2SAT 99
--- NOTE | 2023-01-10 15:00 | PC.NURSE ---
1415: Pt to [facility] amb. per self for dressing change. Pt. to supine position on bed. VSS. Old dressing removed from abdominal incision. Small amout dried purulelnt drainage observed on 4x4 and ABD dressing. Packing removed from wound. Small amount of cream colored exudate removed from bed of wound. Pt. very tearful and moans out upon manipulation of wound. Wound cleansed and irrigated with saline. Using sterile technique, approximately 10 of 1 plain packing packed into wound. Covered with 4x4 and ABD dressings, secured with paper tape. 1434: Pt. d/c'd amb. to home. Follows up with Dr. Morillo 01/11/23.
== END 2023-01-12 23:59 | disposition home or self-care (01) ==
LOC: INF 08:33
PROVIDERS: PCP Internal Medicine; Visit Provider Surgery
DX: L02.211 Cutaneous abscess of abdominal wall (principal)

== ENCOUNTER 2023-01-11 09:45 | Outpatient (OUT) | payer OTHER, MEDICAID, SELFPAY | END 2023-01-11 09:46 | disposition home or self-care (01) | LOC: WC 09:45 | PROVIDERS: PCP Internal Medicine; Visit Provider Surgery | DX: L02.211 Cutaneous abscess of abdominal wall (principal); S31.103S Unspecified open wound of abdominal wall, right lower quadrant without penetration into peritoneal cavity, sequela; L03.311 Cellulitis of abdominal wall; E11.69 Type 2 diabetes mellitus with other specified complication; I10 Essential (primary) hypertension | CPT/HCPCS: A6199; A6213; G0463 ==

== ENCOUNTER 2023-01-12 09:41 | Outpatient (OUT) | payer OTHER, MEDICAID, SELFPAY | END 2023-01-12 09:42 | disposition home or self-care (01) | LOC: WC 09:41 | PROVIDERS: PCP Internal Medicine; Visit Provider Surgery | DX: L02.211 Cutaneous abscess of abdominal wall (principal); L03.311 Cellulitis of abdominal wall; E11.69 Type 2 diabetes mellitus with other specified complication; I10 Essential (primary) hypertension; S31.103S Unspecified open wound of abdominal wall, right lower quadrant without penetration into peritoneal cavity, sequela | CPT/HCPCS: G0463 ==

== ENCOUNTER 2023-01-15 09:44 | Outpatient (OUT) | payer OTHER, MEDICAID, SELFPAY | END 2023-01-15 09:45 | disposition home or self-care (01) | LOC: WC 09:45 | PROVIDERS: PCP Internal Medicine; Visit Provider Surgery | DX: L03.221 Cellulitis of neck (principal); L03.311 Cellulitis of abdominal wall; E11.69 Type 2 diabetes mellitus with other specified complication; I10 Essential (primary) hypertension; S31.103S Unspecified open wound of abdominal wall, right lower quadrant without penetration into peritoneal cavity, sequela | CPT/HCPCS: G0463 ==

== ENCOUNTER 2023-01-18 09:40 | Outpatient (OUT) | payer OTHER, MEDICAID, SELFPAY | END 2023-01-18 09:41 | disposition home or self-care (01) | LOC: WC 09:40 | PROVIDERS: PCP Internal Medicine; Visit Provider Surgery | DX: S31.103S Unspecified open wound of abdominal wall, right lower quadrant without penetration into peritoneal cavity, sequela (principal) | CPT/HCPCS: 11042; A6213 ==

== ENCOUNTER 2023-01-19 10:14 | Outpatient (OUT) | payer OTHER, MEDICAID, SELFPAY | END 2023-01-19 10:15 | disposition home or self-care (01) | LOC: WC 10:14 | PROVIDERS: PCP Internal Medicine; Visit Provider Surgery | DX: S31.103S Unspecified open wound of abdominal wall, right lower quadrant without penetration into peritoneal cavity, sequela (principal) | CPT/HCPCS: A6199; A6213; G0463 ==

== ENCOUNTER 2023-01-22 11:14 | Outpatient (OUT) | payer OTHER, MEDICAID, SELFPAY | END 2023-01-22 11:15 | disposition home or self-care (01) | LOC: WC 11:14 | PROVIDERS: PCP Internal Medicine; Visit Provider Surgery | DX: S31.103S Unspecified open wound of abdominal wall, right lower quadrant without penetration into peritoneal cavity, sequela (principal) | CPT/HCPCS: A6213; G0463 ==

== ENCOUNTER 2023-01-24 13:04 | Outpatient (OUT) | payer OTHER, MEDICAID, SELFPAY | END 2023-01-24 13:05 | disposition home or self-care (01) | LOC: WC 13:04 | PROVIDERS: PCP Internal Medicine; Visit Provider Surgery | DX: S31.103S Unspecified open wound of abdominal wall, right lower quadrant without penetration into peritoneal cavity, sequela (principal) | CPT/HCPCS: 97605 ==

== ENCOUNTER 2023-01-26 09:43 | Outpatient (OUT) | payer OTHER, MEDICAID, SELFPAY | END 2023-01-26 09:44 | disposition home or self-care (01) | LOC: WC 09:44 | PROVIDERS: PCP Internal Medicine; Visit Provider Surgery | DX: S31.103S Unspecified open wound of abdominal wall, right lower quadrant without penetration into peritoneal cavity, sequela (principal) | CPT/HCPCS: 97605 ==

== ENCOUNTER 2023-01-29 11:15 | Outpatient (OUT) | payer OTHER, MEDICAID, SELFPAY | END 2023-01-29 11:16 | disposition home or self-care (01) | LOC: WC 11:15 | PROVIDERS: PCP Internal Medicine; Visit Provider Podiatrist Foot & Ankle Surgery | DX: S31.103S Unspecified open wound of abdominal wall, right lower quadrant without penetration into peritoneal cavity, sequela (principal) | CPT/HCPCS: 97605 ==

== ENCOUNTER 2023-01-31 10:43 | Outpatient (OUT) | payer OTHER, MEDICAID, SELFPAY | END 2023-01-31 10:44 | disposition home or self-care (01) | LOC: WC 10:43 | PROVIDERS: PCP Internal Medicine; Visit Provider Surgery | DX: S31.103S Unspecified open wound of abdominal wall, right lower quadrant without penetration into peritoneal cavity, sequela (principal) | CPT/HCPCS: A6199; A6213; G0463 ==

== ENCOUNTER 2023-02-01 09:44 | Outpatient (OUT) | payer OTHER, MEDICAID, SELFPAY | END 2023-02-01 09:45 | disposition home or self-care (01) | LOC: WC 09:44 | PROVIDERS: PCP Internal Medicine; Visit Provider Surgery | DX: S31.103S Unspecified open wound of abdominal wall, right lower quadrant without penetration into peritoneal cavity, sequela (principal) | CPT/HCPCS: A6213; G0463 ==

== ENCOUNTER 2023-02-02 10:46 | Outpatient (OUT) | payer OTHER, MEDICAID, SELFPAY | END 2023-02-02 10:47 | disposition home or self-care (01) | LOC: WC 10:46 | PROVIDERS: PCP Internal Medicine; Visit Provider Surgery | DX: S31.103S Unspecified open wound of abdominal wall, right lower quadrant without penetration into peritoneal cavity, sequela (principal) | CPT/HCPCS: A6199; A6213; G0463 ==

== ENCOUNTER 2023-02-05 09:14 | Outpatient (OUT) | payer OTHER, MEDICAID, SELFPAY | END 2023-02-05 09:15 | disposition home or self-care (01) | LOC: WC 09:16 | PROVIDERS: PCP Internal Medicine; Visit Provider Surgery | DX: S31.103S Unspecified open wound of abdominal wall, right lower quadrant without penetration into peritoneal cavity, sequela (principal) | CPT/HCPCS: A6213; G0463 ==

== ENCOUNTER 2023-02-06 12:49 | Outpatient (OUT) | payer OTHER, MEDICAID, SELFPAY | END 2023-02-06 12:50 | disposition home or self-care (01) | LOC: WC 12:49 | PROVIDERS: PCP Internal Medicine; Visit Provider Surgery | DX: S31.103S Unspecified open wound of abdominal wall, right lower quadrant without penetration into peritoneal cavity, sequela (principal) | CPT/HCPCS: A6213; G0463 ==

== ENCOUNTER 2023-02-07 10:17 | Outpatient (OUT) | payer OTHER, MEDICAID, SELFPAY | END 2023-02-07 10:18 | disposition home or self-care (01) | LOC: WC 10:17 | PROVIDERS: PCP Internal Medicine; Visit Provider Surgery | DX: S31.103S Unspecified open wound of abdominal wall, right lower quadrant without penetration into peritoneal cavity, sequela (principal) | CPT/HCPCS: A6213; G0463 ==

== ENCOUNTER 2023-02-08 10:12 | Outpatient (OUT) | payer OTHER, MEDICAID, SELFPAY | END 2023-02-08 10:13 | disposition home or self-care (01) | LOC: WC 10:12 | PROVIDERS: PCP Internal Medicine; Visit Provider Surgery | DX: S31.103S Unspecified open wound of abdominal wall, right lower quadrant without penetration into peritoneal cavity, sequela (principal) | CPT/HCPCS: A6213; G0463 ==

== ENCOUNTER 2023-02-09 10:12 | Outpatient (OUT) | payer OTHER, MEDICAID, SELFPAY | END 2023-02-09 10:13 | disposition home or self-care (01) | LOC: WC 10:12 | PROVIDERS: PCP Internal Medicine; Visit Provider Surgery | DX: S31.103S Unspecified open wound of abdominal wall, right lower quadrant without penetration into peritoneal cavity, sequela (principal) | CPT/HCPCS: A6213; G0463 ==

== ENCOUNTER 2023-02-12 13:15 | Outpatient (OUT) | payer OTHER, MEDICAID, SELFPAY | END 2023-02-12 13:16 | disposition home or self-care (01) | LOC: WC 13:15 | PROVIDERS: PCP Internal Medicine; Visit Provider Surgery | DX: S31.103S Unspecified open wound of abdominal wall, right lower quadrant without penetration into peritoneal cavity, sequela (principal) | CPT/HCPCS: 11042; 97605 ==

== ENCOUNTER 2023-02-14 10:13 | Outpatient (OUT) | payer OTHER, MEDICAID, SELFPAY | END 2023-02-14 10:14 | disposition home or self-care (01) | LOC: WC 10:13 | PROVIDERS: PCP Internal Medicine; Visit Provider Surgery | DX: S31.103S Unspecified open wound of abdominal wall, right lower quadrant without penetration into peritoneal cavity, sequela (principal) | CPT/HCPCS: 97605 ==

== ENCOUNTER 2023-02-16 11:29 | Outpatient (OUT) | payer OTHER, MEDICAID, SELFPAY | END 2023-02-16 11:30 | disposition home or self-care (01) | LOC: WC 11:29 | PROVIDERS: PCP Internal Medicine; Visit Provider Surgery | DX: S31.103S Unspecified open wound of abdominal wall, right lower quadrant without penetration into peritoneal cavity, sequela (principal) | CPT/HCPCS: 97605 ==

== ENCOUNTER 2023-02-19 13:45 | Outpatient (OUT) | payer OTHER, MEDICAID, SELFPAY | END 2023-02-19 13:46 | disposition home or self-care (01) | LOC: WC 13:45 | PROVIDERS: PCP Internal Medicine; Visit Provider Surgery | DX: S31.103S Unspecified open wound of abdominal wall, right lower quadrant without penetration into peritoneal cavity, sequela (principal) | CPT/HCPCS: 97605 ==

== ENCOUNTER 2023-02-21 10:45 | Outpatient (OUT) | payer OTHER, MEDICAID, SELFPAY | END 2023-02-21 10:46 | disposition home or self-care (01) | LOC: WC 10:45 | PROVIDERS: PCP Internal Medicine; Visit Provider Surgery | DX: S31.103S Unspecified open wound of abdominal wall, right lower quadrant without penetration into peritoneal cavity, sequela (principal) | CPT/HCPCS: 97605 ==

== ENCOUNTER 2023-02-23 10:42 | Outpatient (OUT) | payer OTHER, MEDICAID, SELFPAY | END 2023-02-23 10:43 | disposition home or self-care (01) | LOC: WC 10:42 | PROVIDERS: PCP Internal Medicine; Visit Provider Podiatrist Foot & Ankle Surgery | DX: S31.103S Unspecified open wound of abdominal wall, right lower quadrant without penetration into peritoneal cavity, sequela (principal) | CPT/HCPCS: 97605 ==

== ENCOUNTER 2023-02-26 13:10 | Outpatient (OUT) | payer OTHER, MEDICAID, SELFPAY | END 2023-02-26 13:11 | disposition home or self-care (01) | LOC: WC 13:12 | PROVIDERS: PCP Internal Medicine; Visit Provider Surgery | DX: S31.103S Unspecified open wound of abdominal wall, right lower quadrant without penetration into peritoneal cavity, sequela (principal) | CPT/HCPCS: 11042; A6199; A6213 ==

== ENCOUNTER 2023-02-28 09:45 | Outpatient (OUT) | payer OTHER, MEDICAID, SELFPAY | END 2023-02-28 09:46 | disposition home or self-care (01) | LOC: WC 09:45 | PROVIDERS: PCP Internal Medicine; Visit Provider Surgery | DX: S31.103S Unspecified open wound of abdominal wall, right lower quadrant without penetration into peritoneal cavity, sequela (principal) | CPT/HCPCS: A6213; G0463 ==

== ENCOUNTER 2023-03-02 09:11 | Outpatient (OUT) | payer OTHER, MEDICAID, SELFPAY | END 2023-03-02 09:12 | disposition home or self-care (01) | LOC: WC 09:12 | PROVIDERS: PCP Internal Medicine; Visit Provider Surgery | DX: S31.103S Unspecified open wound of abdominal wall, right lower quadrant without penetration into peritoneal cavity, sequela (principal) | CPT/HCPCS: A6213; G0463 ==

== ENCOUNTER 2023-03-05 09:12 | Outpatient (OUT) | payer OTHER, MEDICAID, SELFPAY | END 2023-03-05 09:13 | disposition home or self-care (01) | LOC: WC 09:12 | PROVIDERS: PCP Internal Medicine; Visit Provider Surgery | DX: S31.103S Unspecified open wound of abdominal wall, right lower quadrant without penetration into peritoneal cavity, sequela (principal) | CPT/HCPCS: 11042; A6213 ==

== ENCOUNTER 2023-03-07 10:16 | Outpatient (OUT) | payer OTHER, MEDICAID, SELFPAY | END 2023-03-07 10:17 | disposition home or self-care (01) | LOC: WC 10:16 | PROVIDERS: PCP Internal Medicine; Visit Provider Podiatrist Foot & Ankle Surgery | DX: S31.103S Unspecified open wound of abdominal wall, right lower quadrant without penetration into peritoneal cavity, sequela (principal) | CPT/HCPCS: A6213; G0463 ==

== ENCOUNTER 2023-03-09 10:10 | Outpatient (OUT) | payer OTHER, MEDICAID, SELFPAY | END 2023-03-09 10:11 | disposition home or self-care (01) | LOC: WC 10:10 | PROVIDERS: PCP Internal Medicine; Visit Provider Surgery | DX: S31.103S Unspecified open wound of abdominal wall, right lower quadrant without penetration into peritoneal cavity, sequela (principal) | CPT/HCPCS: A6213; G0463 ==

== ENCOUNTER 2023-03-12 09:40 | Outpatient (OUT) | payer OTHER, MEDICAID, SELFPAY | END 2023-03-12 09:41 | disposition home or self-care (01) | LOC: WC 09:40 | PROVIDERS: PCP Internal Medicine; Visit Provider Surgery | DX: S31.103S Unspecified open wound of abdominal wall, right lower quadrant without penetration into peritoneal cavity, sequela (principal) | CPT/HCPCS: A6213; G0463 ==

== ENCOUNTER 2023-03-15 09:46 | Outpatient (OUT) | payer OTHER, MEDICAID, SELFPAY | END 2023-03-15 09:47 | disposition home or self-care (01) | LOC: WC 09:46 | PROVIDERS: PCP Internal Medicine; Visit Provider Surgery | DX: S31.103S Unspecified open wound of abdominal wall, right lower quadrant without penetration into peritoneal cavity, sequela (principal) | CPT/HCPCS: A6213; G0463 ==

== ENCOUNTER 2023-03-20 09:14 | Outpatient (OUT) | payer OTHER, MEDICAID, SELFPAY | END 2023-03-20 09:15 | disposition home or self-care (01) | LOC: WC 09:14 | PROVIDERS: PCP Internal Medicine; Visit Provider Surgery | DX: S31.103S Unspecified open wound of abdominal wall, right lower quadrant without penetration into peritoneal cavity, sequela (principal) | CPT/HCPCS: A6213; G0463 ==

== ENCOUNTER 2023-03-22 09:16 | Outpatient (OUT) | payer OTHER, MEDICAID, SELFPAY | END 2023-03-22 09:17 | disposition home or self-care (01) | LOC: WC 09:16 | PROVIDERS: PCP Internal Medicine; Visit Provider Surgery | DX: S31.103S Unspecified open wound of abdominal wall, right lower quadrant without penetration into peritoneal cavity, sequela (principal) | CPT/HCPCS: A6213; G0463 ==

== ENCOUNTER 2023-03-29 13:42 | Outpatient (OUT) | payer OTHER, MEDICAID, SELFPAY | END 2023-03-29 13:43 | disposition home or self-care (01) | LOC: WC 13:42 | PROVIDERS: PCP Internal Medicine; Visit Provider Surgery | DX: S31.103S Unspecified open wound of abdominal wall, right lower quadrant without penetration into peritoneal cavity, sequela (principal) | CPT/HCPCS: G0463 ==

== ENCOUNTER 2023-04-12 15:25 | Outpatient (OUT) | payer MEDICAID, SELFPAY | END 2023-04-12 15:26 | disposition home or self-care (01) | LOC: WC 15:26 | PROVIDERS: Visit Provider Surgery | DX: S31.103S Unspecified open wound of abdominal wall, right lower quadrant without penetration into peritoneal cavity, sequela (principal) | CPT/HCPCS: G0463 ==

== ENCOUNTER 2023-04-16 08:35 | Outpatient (OUT) | payer MEDICAID, SELFPAY ==
--- NOTE | 2023-04-16 10:14 | P.CN_ITS ---
Consult Note: HPI Data of Consult Patient: new to practice Consult date: 04/16/23 Requesting Physician: Marisa Cohen MD Primary Care Provider: Non-Staff Physician, Consult Narrative Reason for consult: low back pain Narrative: 57yof who presents for evaluation. worsening low back pain, has been ongoing for years, continues to worsen. imaging reviewed, which is significant for multiple levels of stenosis, worst in lower spine, as well as multilevel facet arthropathy. engages in >6 weeks of provider directed home exercises, with minimal relief. utilized tramadol on occasion previously, but has not taken any since moving from [place]. denies adverse med side effects. cc:: CC: Marisa Cohen MD Review of Systems ROS Status of ROS 10 or more systems reviewed and unremarkable except as noted in history and below [facility] History Cataract (lens) fragments in eye following cataract surgery, bilateral ?H59.023 - Cataract (lens) fragments in eye following cataract surgery, bilateral (ICD-10) Cholecystectomy planned Chronic pain ?G89.29 - Other chronic pain (ICD-10) Cutaneous abscess of abdominal wall ?L02.211 - Cutaneous abscess of abdominal wall (ICD-10) Diabetes ?E11.9 - Type 2 diabetes mellitus without complications (ICD-10) Fibromyalgia ?M79.7 - Fibromyalgia (ICD-10) Gallbladder & bile duct stone with obstruction ?K80.71 - Calculus of gallbladder and bile duct without cholecystitis with obstruction (ICD-10) High cholesterol ?E78.00 - Pure hypercholesterolemia, unspecified (ICD-10) Hyperglycemia due to diabetes mellitus ?E11.65 - Type 2 diabetes mellitus with hyperglycemia (ICD-10) 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) Hypertension ?I10 - Essential (primary) hypertension (ICD-10) Open wound of third toe of left foot ?S91.105A - Unspecified open wound of left lesser toe(s) without damage to nail, initial encounter (ICD-10) Osteoarthritis ?M19.90 - Unspecified osteoarthritis, unspecified site (ICD-10) Family History Mother Family history of diabetes mellitus Family history of stroke Family history of COPD (chronic obstructive pulmonary disease) Father Family history of diabetes mellitus Social History Within the past year, how often did you have a drink containing alcohol: never Within the past year, how many standard drinks containing alcohol did you have on a typical day: 1 or 2 Within the past year, how often did you have six or more drinks on one occasion: never Total score: 0 Score interpretation: A score less than 3 is consistent with normal alcohol consumption. Smoking status: Never smoker Second hand tobacco smoke exposure: No Non-prescribed substance use: denies use Previous occupational history: worker Known occupational exposures/hazards: No Highest level of school completed/degree received: Associate degree: academic program Do you want help with school or training: No Are you now , , , , never or living with a partner: In a typical week, how many times do you talk on the telephone with family, friends, or neighbors: 3 or more times per week How often do you get together with friends or relatives: twice per week How often do you attend oriental orthodox or taoist services: 1-3 times per year Do you belong to any clubs or organizations such as oriental orthodox groups unions, fraternal or athletic groups, or school groups: yes Total score: 2 Score interpretation: A score of greater than or equal to 2 indicates the lowest level of social isolation. Little interest or pleasure in doing things: not at all Feeling down, depressed, or hopeless: not at all Feel stressed/tense/nervous/anxious/difficulty sleeping: not at all Due to disability, difficulty making decisions: No Do you think of yourself as: straight/heterosexual Gender Identity: female Meds Home Medications and Allergies Home Medications Medication Instructions Recorded Confirmed Type fluticasone propionate 50 2 spray intranasal .ONCE DAILY 12/29/22 01/04/23 History mcg/actuation nasal spray,suspension losartan 50 mg tablet 50 mg PO DAILY 12/29/22 01/04/23 History meloxicam 15 mg tablet 15 mg PO DAILY 12/29/22 01/04/23 History metformin 1,000 mg tablet 1,000 mg PO .twice daily 12/29/22 01/04/23 History pregabalin 100 mg capsule 100 mg PO Q12H 12/29/22 01/04/23 History rosuvastatin 20 mg tablet 20 mg PO DAILY 12/29/22 01/04/23 History insulin detemir U-100 100 unit/mL 20 unit (0.2 mL) subcut QPM #15 mL 01/06/23 Rx (3 mL) subcutaneous pen (Levemir FlexPen) sulfamethoxazole 800 1 tab PO BID 10 days #20 tabs 01/06/23 Rx mg-trimethoprim 160 mg tablet (Bactrim DS) tramadol 50 mg tablet 50 mg PO BID PRN pain #60 tabs 04/16/23 Rx Allergies Allergy/AdvReac Type Severity Reaction Status Date / Time No Known Drug Allergies Allergy Verified 12/29/22 19:49 Exam Narrative Exam Narrative: Psych-alert and oriented x 3. Attentive and appropriate, constitutionally normal, displays normal mood and affect per situation.? There are no obvious deficits in memory, reasoning, or intellect.? Skin-no obvious rashes, bruising, erythema noted to the patient's area of pain. Extremities- extremities are warm with minimal edema and palpable pulses. Lumbar-no significant tenderness to palpation noted in the lumbar spine and paraspinal musculature.? Pain is elicited with extension, and lateral rotation of the lumbar spine. Range of motion is slightly diminished with these motions due to pain. Facet loading maneuvers are positive bilaterally and do appear to be concordant with the patient's normal complaints of pain.? Coordination remains intact.? Gait remains non-antalgic. Assessment and Plan Assessment and Plan (1) Lumbar stenosis with neurogenic claudication: (2) Lumbar spondylosis: Plan 57yof who presents for evaluation. failed conservative measures, as noted. imaging reviewed, as noted. given symptoms and imaging, prudent to proceed with diagnostic bilateral l4-5, l5-s1 medial branch blocks under fluoroscopic guidance with intention of proceeding to radiofrequency ablation. she is in agreement. medications reviewed. OARRS reviewed. will prescribe tramadol 50mg bid prn. urine drug screen obtained today. follow up after procedure.
== END 2023-04-16 08:36 | disposition home or self-care (01) ==
PROVIDERS: Visit Provider Anesthesiology
DX: M48.062 Spinal stenosis, lumbar region with neurogenic claudication (principal); M47.816 Spondylosis without myelopathy or radiculopathy, lumbar region
CPT/HCPCS: G0463

== ENCOUNTER 2023-04-30 07:58 | Day surgery (SDC) | payer MEDICAID, SELFPAY ==
[2023-04-30 08:52] VITALS: BP 109/72; PULSE 79; RESP 14; TEMP 36.2; O2SAT 97
[2023-04-30 08:55] LABS: Glucometer 289 mg/dL (74-106)
[2023-04-30 09:35] VITALS: BP 153/67; PULSE 68; RESP 18; O2SAT 95
[2023-04-30 09:36] VITALS: BP 141/67; PULSE 77; RESP 18; O2SAT 95
[2023-04-30] MEDS: TRIAMCINOLONE ACETONIDE 40 MG/ML VIAL INJ (09:38)
[2023-04-30] MEDS: LIDOCAINE HCL 2% PF 100 MG/5 ML VIAL INJ (09:38)
[2023-04-30] MEDS: BUPIVACAINE HCL 0.5% PF 50 MG/10 ML VIAL 8 ML INJ (09:38)
--- NOTE | 2023-04-30 09:38 | W.PM.PROCNOT ---
Date of procedure: 04/30/23 Pre-op diagnosis: Lumbar spondylosis Post-op diagnosis: same as pre-op Procedure: Procedure: Bilateral L4-5, L5-S1 medial branch block Medications: Bupivacaine 0.25% 4cc The patient was seen and examined in the preoperative holding area.? An informed consent was obtained and placed on the chart.? The patient was brought to the medical procedure unit and placed in the prone position.? A timeout was completed verifying correct patient, procedure site, positioning, plan, and special equipment.? Using aseptic technique, the needle was placed at left L4. Under direct fluoroscopic visualization a Quincke-tipped spinal needle was advanced to the junction of the superior articulating process with the transverse process at the designated medial branch segment.? Preceded by negative aspiration, the above-mentioned injectate was placed in 1 mL aliquots.? The procedure was repeated at left L5, S1.? The needle was removed and insertion site was covered. The same procedure, at the same levels, was completed on the right side. The patient was taken to the postprocedural recovery area and monitored for an appropriate length of time before found suitable for discharge in the company of a responsible adult. Anesthesia: Local Surgeon: Marisa Cohen Pathology: none sent Condition: stable Disposition: no change
== END 2023-04-30 09:41 | disposition home or self-care (01) ==
PROVIDERS: Visit Provider Anesthesiology
DX: M47.816 Spondylosis without myelopathy or radiculopathy, lumbar region (principal)
CPT/HCPCS: 36415; 64493; 64494; 82948

== ENCOUNTER 2023-05-10 08:43 | Outpatient (OUT) | payer MEDICAID, SELFPAY ==
--- NOTE | 2023-05-10 08:59 | P.CN_ITS ---
Consult Note: HPI Data of Consult Patient: known to practice within the last 3 years Requesting Physician: Nery Maldonado NP Primary Care Provider: Non-Staff Physician, MD Consult Narrative Reason for consult: F/u Narrative: Melody Chang a pleasant 57 year old female presents for evaluation and management of chronic pain. Today patient rating pain in low back 3/10 and thoracic area. Patient describing it as a sore, ache. Patient experienced 80% pain relief and functional improvement immediately following and hours after MBB #1 at bilateral L4-5 L5-S1. Patient would like to discuss upper back pain and working towards thermal RFA of lumbar spine. cc:: CC: Nery Maldonado NP Review of Systems ROS Status of ROS 10 or more systems reviewed and unremarkable except as noted in history and below Musculoskeletal Reports: back pain PFSH PFSH Medical History Cataract (lens) fragments in eye following cataract surgery, bilateral ?H59.023 - Cataract (lens) fragments in eye following cataract surgery, bilateral (ICD-10) Cholecystectomy planned Chronic pain ?G89.29 - Other chronic pain (ICD-10) Cutaneous abscess of abdominal wall ?L02.211 - Cutaneous abscess of abdominal wall (ICD-10) Diabetes ?E11.9 - Type 2 diabetes mellitus without complications (ICD-10) Fibromyalgia ?M79.7 - Fibromyalgia (ICD-10) Gallbladder & bile duct stone with obstruction ?K80.71 - Calculus of gallbladder and bile duct without cholecystitis with obstruction (ICD-10) High cholesterol ?E78.00 - Pure hypercholesterolemia, unspecified (ICD-10) Hyperglycemia due to diabetes mellitus ?E11.65 - Type 2 diabetes mellitus with hyperglycemia (ICD-10) 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) Hypertension ?I10 - Essential (primary) hypertension (ICD-10) Open wound of third toe of left foot ?S91.105A - Unspecified open wound of left lesser toe(s) without damage to nail, initial encounter (ICD-10) Osteoarthritis ?M19.90 - Unspecified osteoarthritis, unspecified site (ICD-10) Family History Mother Family history of diabetes mellitus Family history of stroke Family history of COPD (chronic obstructive pulmonary disease) Father Family history of diabetes mellitus Social History Within the past year, how often did you have a drink containing alcohol: never Within the past year, how many standard drinks containing alcohol did you have on a typical day: 1 or 2 Within the past year, how often did you have six or more drinks on one occasion: never Total score: 0 Score interpretation: A score less than 3 is consistent with normal alcohol consumption. Smoking status: Never smoker Second hand tobacco smoke exposure: No Non-prescribed substance use: denies use Previous occupational history: worker Known occupational exposures/hazards: No Highest level of school completed/degree received: Associate degree: academic program Do you want help with school or training: No Are you now , , , , never or living with a partner: In a typical week, how many times do you talk on the telephone with family, friends, or neighbors: 3 or more times per week How often do you get together with friends or relatives: twice per week How often do you attend druze or caodaism services: 1-3 times per year Do you belong to any clubs or organizations such as druze groups unions, [employer] or athletic groups, or school groups: yes Total score: 2 Score interpretation: A score of greater than or equal to 2 indicates the lowest level of social isolation. Little interest or pleasure in doing things: not at all Feeling down, depressed, or hopeless: not at all Feel stressed/tense/nervous/anxious/difficulty sleeping: not at all Due to disability, difficulty making decisions: No Do you think of yourself as: straight/heterosexual Gender Identity: female Meds Home Medications and Allergies Home Medications Medication Instructions Recorded Confirmed Type fluticasone propionate 50 2 spray intranasal .ONCE DAILY 12/29/22 04/30/23 History mcg/actuation nasal spray,suspension losartan 50 mg tablet 50 mg PO DAILY 12/29/22 04/30/23 History meloxicam 15 mg tablet 15 mg PO DAILY 12/29/22 04/30/23 History metformin 1,000 mg tablet 1,000 mg PO .twice daily 12/29/22 04/30/23 History pregabalin 100 mg capsule 100 mg PO Q12H 12/29/22 04/30/23 History rosuvastatin 20 mg tablet 20 mg PO DAILY 12/29/22 04/30/23 History insulin detemir U-100 100 unit/mL 20 unit (0.2 mL) subcut QPM #15 mL 01/06/23 04/30/23 Rx (3 mL) subcutaneous pen (Levemir FlexPen) tramadol 50 mg tablet 50 mg PO BID PRN pain #60 tabs 04/16/23 04/30/23 Rx Allergies Allergy/AdvReac Type Severity Reaction Status Date / Time No Known Drug Allergies Allergy Verified 04/30/23 08:49 Exam Constitutional Documenting provider has reviewed patient's vital signs: yes Common normals: no apparent distress, oriented x3, healthy appearing, alert and well nourished General appearance: cooperative HENMT Common normals: normocephalic, hearing grossly normal bilaterally and moist oral mucous membranes Head and scalp: normocephalic Eye Common normals: PERRL Pupil: PERRL Neck & C-Spine Common normals: full ROM General: normal visual inspection Chest Common normals: inspection of chest normal Respiratory Common normals: normal respiratory effort, no retractions and no use of accessory muscles Back & Pelvis Thoracic spine/upper back: ROM limited and pain with ROM Lumbar spine/lower back: ROM limited, pain with ROM and straight leg raise negative bilaterally Sacroiliac joints: SI joints normal Other: axial low back pain without radiculopathy bilateral facet loading Extremity Common normals: normal to inspection and full ROM Neuro Common normals: oriented x3, CN's II-XII intact bilaterally, moves all extremities, no focal motor deficits, no sensory deficits noted and deep tendon reflexes 2+ bilaterally Sensorium/orientation: alert Gait (neuro): antalgic Motor exam: strength 5/5 throughout and no movement abnormalities noted Psych Common normals: mental status grossly normal, thought process normal, cooperative, affect normal, speech normal and activity/motor behavior normal Speech: normal speech Thought process: normal thought process Results Additional Findings Additional findings: I have checked an [place] report on this patient today and there are no aberrancies noted in the prescribing history.?? A drug screen was completed and reviewed within the last year, and if there has not been a drug screen completed we ordered one today to monitor higher risk, state monitored pain medication use. As part of providing excellent, safe, comprehensive care, the following was completed at our patient's visit: 1. A medication reconciliation and review to ensure accurate knowledge of current/active medications, including asking our patients to inform us about any [id number] medications or herbal remedies/nutritional supplements/alternative remedies. 2. A review to specifically ensure our patients have had annual screening for: elevated body mass index (BMI), tobacco use, screening for depression, and screening for unhealthy alcohol use. When screening is concerning, patients are provided with education and the specific recommendation to discuss the concerning health issue and treatment options with their primary care provider. Assessment and Plan Assessment and Plan (1) Lumbar spondylosis: Assessment and Plan: The patient has had over 3 months of moderate to severe low back pain with functional impairment and inadequate response to conservative care including NSAIDS (unless there are contraindication such as concurrent blood thinners), multiple oral or topical pain medications, and home exercise program/physical therapy.? Patient has completed >6 weeks of guided home exercise program and/or formal physical therapy program without relief of their symptoms.? I have reviewed the imaging of the lumbar spine and no red flags were identified.? The imaging reveals radiographic findings consistent with lumbar spondylosis We discussed the risks and benefits of the procedure with the patient, and we are not planning on using sedation as outlined in the guidelines from Medicare unless there is a documented reason that sedation would be strongly recommended.?? ?The procedure will be completed with fluoroscopic guidance.? (2) Thoracic back pain: (3) Obesity: Assessment and Plan: The patient was counseled that proper dietary changes and consistent participation in a home exercise plan can lead to weight loss. Weight loss can help to improve functionality in patients with chronic pain.? Plan continue current medications proceed with bilateral L4-5 L5-S1 MBB #2 working towards thermal RFA thoracic xray for back pain f/u 1 week after procedure
== END 2023-05-10 08:44 | disposition home or self-care (01) ==
LOC: PM 08:43
PROVIDERS: Visit Provider Nurse Practitioner
DX: M47.816 Spondylosis without myelopathy or radiculopathy, lumbar region (principal); M54.6 Pain in thoracic spine; E66.9 Obesity, unspecified
CPT/HCPCS: G0463

== ENCOUNTER 2023-05-21 09:24 | Day surgery (SDC) | payer MEDICAID, SELFPAY ==
[2023-05-21 10:21] VITALS: BP 107/68; PULSE 68; RESP 16; TEMP 36.3; O2SAT 99
[2023-05-21 10:24] LABS: Glucometer 169 mg/dL (74-106)
[2023-05-21 10:49] VITALS: BP 129/58; PULSE 66; RESP 18; O2SAT 95
[2023-05-21 10:51] VITALS: BP 130/62; PULSE 71; RESP 18; O2SAT 97
[2023-05-21] MEDS: LIDOCAINE HCL 2% PF 100 MG/5 ML VIAL INJ (10:51)
[2023-05-21] MEDS: BUPIVACAINE HCL 0.5% PF 50 MG/10 ML VIAL INJ (10:51)
--- NOTE | 2023-05-21 10:54 | W.PM.PROCNOT ---
Date of procedure: 05/21/23 Pre-op diagnosis: Lumbar spondylosis Post-op diagnosis: same as pre-op Procedure: Procedure: Bilateral L4-5, L5-S1 medial branch block Medications: Bupivacaine 0.5% 4cc The patient was seen and examined in the preoperative holding area.? An informed consent was obtained and placed on the chart.? The patient was brought to the medical procedure unit and placed in the prone position.? A timeout was completed verifying correct patient, procedure site, positioning, plan, and special equipment.? Using aseptic technique, the needle was placed at left L4. Under direct fluoroscopic visualization a Quincke-tipped spinal needle was advanced to the junction of the superior articulating process with the transverse process at the designated medial branch segment.? Preceded by negative aspiration, the above-mentioned injectate was placed in 1 mL aliquots.? The procedure was repeated at left L5, S1.? The needle was removed and insertion site was covered. The same procedure, at the same levels, was completed on the right side. The patient was taken to the postprocedural recovery area and monitored for an appropriate length of time before found suitable for discharge in the company of a responsible adult. Anesthesia: Local Surgeon: Marisa Cohen Pathology: none sent Condition: stable Disposition: no change
== END 2023-05-21 10:56 | disposition home or self-care (01) ==
PROVIDERS: Visit Provider Anesthesiology
DX: M47.816 Spondylosis without myelopathy or radiculopathy, lumbar region (principal)
CPT/HCPCS: 36415; 64493; 64494; 82948

== ENCOUNTER 2023-05-30 14:45 | Outpatient (OUT) | payer MEDICAID, SELFPAY ==
--- NOTE | 2023-05-30 15:00 | P.CN_ITS ---
Consult Note: HPI Data of Consult Patient: known to practice within the last 3 years Requesting Physician: Nery Maldonado NP Primary Care Provider: Non-Staff Physician, MD Consult Narrative Reason for consult: F/u Narrative: Melody Chang a pleasant 57 year old female presents for evaluation and management of chronic pain. Today patient rating pain in low back 3/10. Patient describing it as a sore, ache. Patient experienced 80% pain relief and functional improvement immediately following and hours after MBB #2 at bilateral L4-5 L5-S1. cc:: CC: Nery Maldonado NP Review of Systems ROS Status of ROS 10 or more systems reviewed and unremarkable except as noted in history and below Musculoskeletal Reports: back pain PFSH PFSH Medical History Cataract (lens) fragments in eye following cataract surgery, bilateral ?H59.023 - Cataract (lens) fragments in eye following cataract surgery, bilateral (ICD-10) Cholecystectomy planned Chronic pain ?G89.29 - Other chronic pain (ICD-10) Cutaneous abscess of abdominal wall ?L02.211 - Cutaneous abscess of abdominal wall (ICD-10) Diabetes ?E11.9 - Type 2 diabetes mellitus without complications (ICD-10) Fibromyalgia ?M79.7 - Fibromyalgia (ICD-10) Gallbladder & bile duct stone with obstruction ?K80.71 - Calculus of gallbladder and bile duct without cholecystitis with obstruction (ICD-10) High cholesterol ?E78.00 - Pure hypercholesterolemia, unspecified (ICD-10) Hyperglycemia due to diabetes mellitus ?E11.65 - Type 2 diabetes mellitus with hyperglycemia (ICD-10) 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) Hypertension ?I10 - Essential (primary) hypertension (ICD-10) Open wound of third toe of left foot ?S91.105A - Unspecified open wound of left lesser toe(s) without damage to nail, initial encounter (ICD-10) Osteoarthritis ?M19.90 - Unspecified osteoarthritis, unspecified site (ICD-10) Family History Mother Family history of diabetes mellitus Family history of stroke Family history of COPD (chronic obstructive pulmonary disease) Father Family history of diabetes mellitus Social History Within the past year, how often did you have a drink containing alcohol: never Within the past year, how many standard drinks containing alcohol did you have on a typical day: 1 or 2 Within the past year, how often did you have six or more drinks on one occasion: never Total score: 0 Score interpretation: A score less than 3 is consistent with normal alcohol consumption. Smoking status: Never smoker Second hand tobacco smoke exposure: No Non-prescribed substance use: denies use Previous occupational history: worker Known occupational exposures/hazards: No Highest level of school completed/degree received: Associate degree: academic program Do you want help with school or training: No Are you now , , , , never or living with a partner: In a typical week, how many times do you talk on the telephone with family, friends, or neighbors: 3 or more times per week How often do you get together with friends or relatives: twice per week How often do you attend jain or hinduism services: 1-3 times per year Do you belong to any clubs or organizations such as jain groups unions, [employer] or athletic groups, or school groups: yes Total score: 2 Score interpretation: A score of greater than or equal to 2 indicates the lowest level of social isolation. Little interest or pleasure in doing things: not at all Feeling down, depressed, or hopeless: not at all Feel stressed/tense/nervous/anxious/difficulty sleeping: not at all Due to disability, difficulty making decisions: No Do you think of yourself as: straight/heterosexual Gender Identity: female Meds Home Medications and Allergies Home Medications Medication Instructions Recorded Confirmed Type fluticasone propionate 50 2 spray intranasal .ONCE DAILY 12/29/22 05/21/23 History mcg/actuation nasal spray,suspension losartan 50 mg tablet 50 mg PO DAILY 12/29/22 05/21/23 History meloxicam 15 mg tablet 15 mg PO DAILY 12/29/22 05/21/23 History pregabalin 100 mg capsule 100 mg PO Q12H 12/29/22 05/21/23 History rosuvastatin 20 mg tablet 20 mg PO DAILY 12/29/22 05/21/23 History tramadol 50 mg tablet 50 mg PO BID PRN pain #60 tabs 04/16/23 05/21/23 Rx empagliflozin 25 mg tablet mg 05/21/23 History (Jardiance) semaglutide 1 mg/dose (4 mg/3 mL) mg subcut 05/21/23 History subcutaneous pen injector (Ozempic) Allergies Allergy/AdvReac Type Severity Reaction Status Date / Time No Known Drug Allergies Allergy Verified 05/21/23 10:16 Exam Constitutional Documenting provider has reviewed patient's vital signs: yes Common normals: no apparent distress, oriented x3, healthy appearing, alert and well nourished General appearance: cooperative HENMT Common normals: normocephalic, hearing grossly normal bilaterally and moist oral mucous membranes Head and scalp: normocephalic Eye Common normals: PERRL Pupil: PERRL Neck & C-Spine Common normals: full ROM General: normal visual inspection Chest Common normals: inspection of chest normal Respiratory Common normals: normal respiratory effort, no retractions and no use of accessory muscles Back & Pelvis Thoracic spine/upper back: ROM limited and pain with ROM Lumbar spine/lower back: ROM limited, pain with ROM and straight leg raise negative bilaterally Sacroiliac joints: SI joints normal Other: axial low back pain without radiculopathy bilateral facet loading Extremity Common normals: normal to inspection and full ROM Neuro Common normals: oriented x3, CN's II-XII intact bilaterally, moves all extremities, no focal motor deficits, no sensory deficits noted and deep tendon reflexes 2+ bilaterally Sensorium/orientation: alert Gait (neuro): antalgic Motor exam: strength 5/5 throughout and no movement abnormalities noted Psych Common normals: mental status grossly normal, thought process normal, cooperative, affect normal, speech normal and activity/motor behavior normal Speech: normal speech Thought process: normal thought process Assessment and Plan Assessment and Plan (1) Lumbar spondylosis: Assessment and Plan: The patient has had over 3 months of moderate to severe low back pain with functional impairment and inadequate response to conservative care including NSAIDS (unless there are contraindication such as concurrent blood thinners), multiple oral or topical pain medications, and home exercise program/physical t herapy.? Patient has completed >6 weeks of guided home exercise program and/or formal physical therapy program without relief of their symptoms.? I have reviewed the imaging of the lumbar spine and no red flags were identified.? The imaging reveals radiographic findings consistent with lumbar spondylosis We discussed the risks and benefits of the procedure with the patient, and we are not planning on using sedation as outlined in the guidelines from Medicare unless there is a documented reason that sedation would be strongly recommended.?? ?The procedure will be completed with fluoroscopic guidance.? (2) Thoracic back pain: Plan continue current medications proceed with bilateral L4-5 L5-S1 thermal RFA under fluoroscopy thoracic xray for back pain pending completion, reminded today f/u 1 week after procedure
== END 2023-05-30 14:46 | disposition home or self-care (01) ==
LOC: PM 14:45
PROVIDERS: Visit Provider Nurse Practitioner
DX: L02.211 Cutaneous abscess of abdominal wall (principal); M47.816 Spondylosis without myelopathy or radiculopathy, lumbar region
CPT/HCPCS: G0463

== ENCOUNTER 2023-07-23 06:49 | Day surgery (SDC) | payer MEDICAID, SELFPAY ==
--- OUTSIDE RECORDS SUMMARY | 2023-07-23 06:51 | XMS_ITS | CCD ---
Author Name Unknown Address [address] [place] [address] Organization [facility] Care Team Providers Care Mortgage Processing Clerk Name Role Phone Melonie Alonso Unavailable DALLASC, DR OSEGUERA Admitting Unavailable YUHAS, DR MOLINA Primary Care Unavailable MISC, DR OSEGUERA Attending Unavailable MISC, DR OSEGUERA Consulting Unavailable Eliza, Jesse Consulting Unavailable SAIRA ., DOUGLAS Attending Unavailable SAIRA ., DOUGLAS Consulting Unavailable SAIRA ., DOUGLAS Admitting Unavailable YUHAS, DR MOLINA Primary Care Unavailable YUHAS, DR MOLINA Attending Unavailable YUHAS, DR MOLINA Consulting Unavailable YUHAS, DR MOLINA Primary Care Unavailable YUHAS, DR MOLINA Admitting Unavailable YUHAS, DR MOLINA Attending Unavailable YUHAS, DR MOLINA Consulting Unavailable YUHAS, DR MOLINA Primary Care Unavailable YUHAS, DR MOLINA Admitting Unavailable DENVER, DR MAR Rene Consulting Unavailable YUHAS, DR MOLINA Primary Care Unavailable MISC, DR OSEGUERA Admitting Unavailable MISC, DR OSEGUERA Attending Unavailable MISC, DR OSEGUERA Consulting Unavailable Gracy Drake Unavailable Dani Damon Attending Unavailable Dani Damon Admitting Unavailable Jesse Qiu Primary Care Unavailable Vicki GODINEZ, Marisa Coy Attending Unavailable Vicki GODINEZ, Marisa Coy Attending Unavailable Vicki GODINEZ, Marisa Coy Attending Unavailable Medications Current Medications Medication Drug Class(es) Dates Sig (Normalized) Sig (Original) fluticasone propionate 0.05 mg/actuat metered dose nasal spray (1 source) Corticosteroid meclizine hydrochloride 12.5 mg oral tablet (1 source) Antiemetic Start: 11-05-2021 take 1 tablet by mouth every eight hours Meclizine HCl 12.5 MG 1 tablet as needed Orally every 8 hours for 10 days Oct, Active meloxicam 15 mg oral tablet (1 source) Nonsteroidal Anti-inflammatory Drug metFORMIN (2 sources) Biguanide metFORMIN HCl Ac tive ondansetron 4 mg oral tablet (1 source) Serotonin-3 Receptor Antagonist Start: 11-05-2021 take 1 tablet by mouth every eight hours as needed Zofran ODT 4 MG 1 tablet on the tongue and allow to dissolve Orally every 8 hrs as needed for 4 days Oct, Active Ozempic (1 source) Ozempic Active Completed/Discontinued Medications Medication Drug Class(es) Dates Sig (Normalized) Sig (Original) cephalexin 500 mg oral capsule (1 source) Cephalosporin Antibacterial Problems Active Problems Problem Classification Problem Date Documented Da te Episodic/Chronic Chronic ulcer of skin (1 source) Non-pressure chronic ulcer of other part of right foot with fat layer exposed; Translations: [N-PRS ULCR OTH PRT RT FT FAT EXPOS] Onset: 12-05-2022 Chronic Infective arthritis and osteomyelitis (except that caused by tuberculosis or sexually transmitted disease) (1 source) Other acute osteomyelitis, right ankle and foot; Translations: [OTH ACUTE OSTEOMYEL RT ANKLE FOOT] Onset: 12-05-2022 Chronic Other injuries and conditions due to external causes (1 source) Other injury of unspecified body region, initial encounter; Translations: [OTHER INJURY UNS BODY REGION INIT] Onset: 11-30-2022 Episodic Peripheral and visceral atherosclerosis (4 sources) Peripheral vascular disease, unspecified; Translations: [PERIPHERAL VASCULAR DISEASE UNS] Onset: 11-14-2022 Chronic Residual codes; unclassified (4 sources) Obstructive sleep apnea (adult) (pediatric); Translations: [OBSTRUCTIVE SLEEP APNEA] Onset: 05-16-2022 Chronic Skin and subcutaneous tissue infections (4 sources) Cellulitis of right lower limb; Translations: [CELLULITIS OF RIGHT LOWER LIMB] Onset: 11-04-2022 Episodic Unclassified (1 source) Unspecified open wound of abdominal wall, unspecified quadrant without penetration into peritoneal cavity, initial encounter; Translations: [Unspecified open wound of abdominal wall, unspecified quadrant without penetration into peritoneal cavity, initial encounter] Onset: 02-02-2023 Past or Other Problems Problem Classification Problem Date Documented Da te Episodic/Chronic Conditions associated with dizziness or vertigo (1 source) Benign paroxysmal vertigo, unspecified ear Onset: 11-05-2021 Resolved: 11-05-2021 Episodic Results Test Name Value Interpretation Reference Range Facility Blood Cultureon 02-02-2023 Bacteria identified Cx Nom (Bld) NO GROWTH 5 DAYS PERFORMED BY: [place] [address] PATHOLOGIST RED HAT LINUX ADMINISTRATOR MAR SUMMERS M.D. [facility] Comment on above: Performed By: #### C UBLD #### [address] Bacteria identified Cx Nom (Bld) NO GROWTH 5 DAYS PERFORMED BY: [place] [address] PATHOLOGIST RED HAT LINUX ADMINISTRATOR MAR SUMMERS M.D. [facility] Comment on above: Performed By: #### C MP, PT, CUBLD, PTT, CBC #### [address] Complete Blood Count Auto Di ffon 02-02-2023 Basophils (Bld) [#/Vol] 0.0 10*3/uL Normal 0.0-0.2 [facility] Comment on above: Result Comment: PERF ORMED BY: [place] [address] PATHOLOGIST RED HAT LINUX ADMINISTRATOR MAR SUMMERS M.D. Performed By: #### C MP, PT, CUBLD, PTT, CBC #### [place] [address] [place] Basophils/100 WBC (Bld) 0.6 % Normal . [facility] Comment on above: Performed By: #### C MP, PT, CUBLD, PTT, CBC #### [place] [address] [place] Eosinophils (Bld) [#/Vol] 0.3 10*3/uL Normal 0.0-0.45 [facility] Comment on above: Performed By: #### C MP, PT, CUBLD, PTT, CBC #### [place] [address] [place] Eosinophils/100 WBC (Bld) 4.0 % Normal . [facility] Comment on above: Performed By: #### C MP, PT, CUBLD, PTT, CBC #### [address] Erythrocyte distribution width (RBC) [Ratio] 16.2 % High 11.9-15.3 [facility] Comment on above: Performed By: #### C MP, PT, CUBLD, PTT, CBC #### [address] Hematocrit (Bld) [Volume fraction] 36.4 % Normal 34.0-46.4 [facility] Comment on above: Performed By: #### C MP, PT, CUBLD, PTT, CBC #### [address] Hemoglobin (Bld) [Mass/Vol] 12.3 g/dL Normal 11.8-15.4 [facility] Comment on above: Performed By: #### C MP, PT, CUBLD, PTT, CBC #### [address] Lymphocytes (Bld) [#/Vol] 1.6 10*3/uL Normal 1.00-4.8 [facility] Comment on above: Performed By: #### C MP, PT, CUBLD, PTT, CBC #### [address] Lymphocytes/100 WBC (Bld) 22.7 % Normal . [facility] Comment on above: Performed By: #### C MP, PT, CUBLD, PTT, CBC #### [address] MCH (RBC) [Entitic mass] 29.7 pg Normal 24.7-34.3 [facility] Comment on above: Performed By: #### C MP, PT, CUBLD, PTT, CBC #### [address] MCV (RBC) [Entitic vol] 87.5 fL Normal 80-100 [facility] Comment on above: Performed By: #### C MP, PT, CUBLD, PTT, CBC #### [address] Mean Corpuscular HGB Conc 33.9 g/dL Normal 32.0-35.0 [facility] Comment on above: Performed By: #### C MP, PT, CUBLD, PTT, CBC #### [place] [address] [place] Monocytes (Bld) [#/Vol] 0.6 10*3/uL Normal 0.0-0.8 [facility] Comment on above: Performed By: #### C MP, PT, CUBLD, PTT, CBC #### [place] [address] [place] Monocytes/100 WBC (Bld) 18.60 % Normal 0.00-20.00 [facility] Comment on above: Performed By: #### C MP, PT, CUBLD, PTT, CBC #### [place] [address] [place] Monocytes/100 WBC (Bld) 8.0 % Normal . [facility] Comment on above: Performed By: #### C MP, PT, CUBLD, PTT, CBC #### [place] [address] [place] Neutrophils (Bld) [#/Vol] 4.5 10*3/uL Normal 1.8-7.7 [facility] Comment on above: Performed By: #### C MP, PT, CUBLD, PTT, CBC #### [place] [address] [place] Neutrophils/100 WBC (Bld) 64.7 % Normal . [facility] Comment on above: Performed By: #### C MP, PT, CUBLD, PTT, CBC #### [place] [address] [place] NRBC% 0.0 /100{WBC} Normal 0-0.5 [facility] Comment on above: Performed By: #### C MP, PT, CUBLD, PTT, CBC #### [address] Platelet mean volume (Bld) [Entitic vol] 8.1 fL Normal 6.3-10.7 [facility] Comment on above: Performed By: #### C MP, PT, CUBLD, PTT, CBC #### [address] Platelets (Bld) [#/Vol] 190 10*3/uL Normal 150-450 [facility] Comment on above: Performed By: #### C MP, PT, CUBLD, PTT, CBC #### [address] RBC (Bld) [#/Vol] 4.16 10*6/uL Normal 3.60-5.00 [facility] Comment on above: Performed By: #### C MP, PT, CUBLD, PTT, CBC #### [address] WBC (Bld) [#/Vol] 6.9 10*3/uL Normal 3.8-11.6 [facility] Comment on above: Performed By: #### C MP, PT, CUBLD, PTT, CBC #### [address] Comprehensive Metabolic Pane patsy 02-02-2023 Albumin [Mass/Vol] 4.3 g/dL Normal 3.5-5.7 [facility] Comment on above: Performed By: #### C MP, PT, CUBLD, PTT, CBC #### [address] Albumin/Globulin [Mass ratio] 1.4 {ratio} Normal [facility] Comment on above: Performed By: #### C MP, PT, CUBLD, PTT, CBC #### [address] ALP [Catalytic activity/Vol] 145 U/L High 34-104 [facility] Comment on above: Performed By: #### C MP, PT, CUBLD, PTT, CBC #### [address] [place] [address] [place] ALT [Catalytic activity/Vol] 14 U/L Normal 7-52 [facility] Comment on above: Performed By: #### C MP, PT, CUBLD, PTT, CBC #### [facility] [address] Anion gap [Moles/Vol] 11.9 mmol/L Normal 6.0-15.0 [facility] Comment on above: Performed By: #### C MP, PT, CUBLD, PTT, CBC #### [facility] [address] AST [Catalytic activity/Vol] 18 U/L Normal 13-39 [facility] Comment on above: Performed By: #### C MP, PT, CUBLD, PTT, CBC #### [facility] [address] Bilirubin [Mass/Vol] 0.7 mg/dL Normal 0.3-1.0 [facility] Comment on above: Performed By: #### C MP, PT, CUBLD, PTT, CBC #### [facility] [address] Calcium [Mass/Vol] 9.3 mg/dL Normal 8.6-10.3 [facility] Comment on above: Performed By: #### C MP, PT, CUBLD, PTT, CBC #### [facility] [address] [place] [address] [place] Chloride [Moles/Vol] 104 mmol/L Normal 98-107 [facility] Comment on above: Performed By: #### C MP, PT, CUBLD, PTT, CBC #### [facility] [address] [place] [address] [place] CO2 [Moles/Vol] 28.0 mmol/L Normal 21.0-31.0 [facility] Comment on above: Performed By: #### C MP, PT, CUBLD, PTT, CBC #### [facility] [address] Creatinine [Mass/Vol] 0.68 mg/dL Normal 0.60-1.20 [facility] Comment on above: Performed By: #### C MP, PT, CUBLD, PTT, CBC #### [facility] [address] Creatinine Clr Calc Pharmacy 89.69 [facility] Comment on above: Result Comment: PERF ORMED BY: [place] [address] PATHOLOGIST RED HAT LINUX ADMINISTRATOR MAR SUMMERS M.D. Performed By: #### C MP, PT, CUBLD, PTT, CBC #### [facility] [address] [place] [address] [place] GFR/1.73 sq M.predicted MDRD (S/P/Bld) [Vol rate/Area] mL/min/{1.73_m2} [facility] Comment on above: Performed By: #### C MP, PT, CUBLD, PTT, CBC #### [facility] [address] Globulin (S) [Mass/Vol] 3.0 g/dL [facility] Comment on above: Performed By: #### C MP, PT, CUBLD, PTT, CBC #### [address] Glucose [Mass/Vol] 184 mg/dL High 70-100 [facility] Comment on above: Result Comment: [place] Glucose Reference Range is dependent on time and content of last meal. Glucose of more than 200 mg/dL in a nonstressed, ambulatory subject supports the diagnosis of Diabetes Mellitus. ADA recommended reference range Performed By: #### C MP, PT, CUBLD, PTT, CBC #### [facility] [address] Potassium [Moles/Vol] 3.9 mmol/L Normal 3.5-5.1 [facility] Comment on above: Performed By: #### C MP, PT, CUBLD, PTT, CBC #### [facility] [address] [place] [address] [place] Protein [Mass/Vol] 7.3 g/dL Normal 6.4-8.9 [facility] Comment on above: Performed By: #### C MP, PT, CUBLD, PTT, CBC #### [address] Sodium [Moles/Vol] 140 mmol/L Normal 136-145 [facility] Comment on above: Performed By: #### C MP, PT, CUBLD, PTT, CBC #### [address] Urea nitrogen [Mass/Vol] 12 mg/dL Normal 7-25 [facility] Comment on above: Performed By: #### C MP, PT, CUBLD, PTT, CBC #### [address] Partial Thromboplastin Timeo n 02-02-2023 aPTT Coag (Bld) [Time] 28.7 s Normal 25.1-36.5 [facility] Comment on above: Result Comment: PERF ORMED BY: [place] [address] PATHOLOGIST RED HAT LINUX ADMINISTRATOR MAR SUMMERS M.D. Performed By: #### C MP, PT, CUBLD, PTT, CBC #### [address] Prothrombin Time INRon 02-02 INR Coag (PPP) [Relative time] 1.0 {INR} Normal [facility] Comment on above: Result Comment: INR Therapeutic Range A) Pre- and Peroperative OAT started two weeks before surgery. NOT HIP SURGERY: 1.5 - 2.5 HIP SURGERY: 2 - 3 B) Primary and secondary prevention of venous THROMBOSIS: 2 - 3 C) Active venous thrombosis, pulmonary embolism and prevention of recurrent venous thrombosis: 2 - 3 D) Prevention of arterial thromboembolism including patients with mechanical heart valves: 3 - 4.5 Performed By: #### C MP, PT, CUBLD, PTT, CBC #### [address] PT Coag (PPP) [Time] 11.3 s Normal 9.0-12.9 [facility] Comment on above: Performed By: #### C MP, PT, CUBLD, PTT, CBC #### [facility] [address] US ARTERY LEG RTon 3 US ARTERY LEG RT EXAMINATION: US NAKIA RY LEG RT HISTORY: Peripheral vascular disease (disorder) COMPARISON: No relevant comparison available. TECHNIQUE: Color duplex Doppler ultrasound evaluation analysis was performed in the usual manner. FINDINGS: Mild to moderate diffuse atherosclerosis Biphasic and triphasic waveforms. No occlusion or aneurysm External Iliac PSV: 120.5 cm/s External Iliac EDV: 9.0 cm/s Common Femoral PSV: 70.4 cm/s Common Femoral EDV: 13.9 cm/s Superficial Femoral Proximal PSV: 64.0 cm/s Proximal EDV: 7.4 cm/s Mid PSV: 78.5 cm/s Mid EDV: 0.0 cm/s Distal PSV: 64.0 cm/s Distal EDV: 5.8 cm/s Popliteal Proximal PSV: 39.7 cm/s Popliteal Proximal EDV: 0.0 cm/s Posterior Tibial Proximal PSV: 65.5 cm/s Proximal EDV: 9.0 cm/s Mid PSV: 78.4 cm/s Mid EDV: 7.4 cm/s Distal PSV: 68.8 cm/s Distal EDV: 10.7 cm/s Anterior Tibial Proximal PSV: 54.2 cm/s Proximal EDV: 0.0 cm/s Mid PSV: 57.4 cm/s Mid EDV: 2.6 cm/s Distal PSV: 63.9 cm/s Distal EDV: 0.0 cm/s IMPRESSION: Atherosclerosis with mild distal ischemic waveform Electronically authenticated by: MAR CARRIZALES Date: 2022-11-26 16:30 Normal [facility] MRI FOOT RT WO CONon 023 MRI FOOT RT WO CON EXAM: MRI FOOT RT WO CON HISTORY: Chronic nonhealing foot ulcers mainly involving the fourth and fifth toes with seepage. COMPARISON: None. TECHNIQUE: Multiplanar and multisequence imaging of the right foot was performed without contrast. FINDINGS: Motion artifact mildly degrades evaluation on this study. No acute fracture or dislocation is evident. The visualized distal tibia and fibula are intact. There is no OCD lesion involving the talar dome. There is no calcaneal stress fracture. No metatarsal fracture is identified. There is moderately severe degenerative change of the second tarsometatarsal joint with joint space narrowing, spurring, and subarticular cystic change. 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 There is also mild degenerative change of the first metatarsal phalangeal joint. There is moderate to marked subcutaneous edema and soft tissue swelling over the dorsal aspect of the foot with moderate diffuse soft tissue swelling of the ankle. The soft tissue swelling extends into the toes. Correlation for the clinical extent of cellulitis would be helpful. There is no focal abscess. The ulcers described in the clinical history in the fourth and fifth toes are not well demonstrated on these relatively large [id number] images. There is no MRI evidence of osteomyelitis involving the phalanges of the toes. The Achilles tendon is intact. No peroneal tendon tear is evident. Flexor and extensor tendons appear intact including the posterior tibialis tendon. IMPRESSION: 1. There is moderate to marked subcutaneous edema and soft tissue swelling over the dorsal aspect of the foot with moderate diffuse subcutaneous edema/swelling along the ankle. This could relate to venous stasis or lymphedema versus cellulitis. 2. No MRI evidence of osteomyelitis. 3. No focal abscess. 4. Degenerative change as described above includes moderate to severe degenerative change of the second tarsometatarsal joint and moderate degenerative change of the talonavicular and naviculocuneiform joints. There is mild degenerative change otherwise as described above. Electronically authenticated by: JESSE SCHNEIDER Date: 2022-11-14 15:15 Normal [facility] BASIC METABOLIC PANELon 06-0 BUN/CREATININE RATIO NOT APPLICABLE Normal 6-22 [facility] Comment on above: Order Comment: FASTI NG:YES FASTING: YES Performed By: #### 1 [id number], 664 #### [facility] [address], [address] [place] [id number] Implementation Consultant: Marcellus Thomason MD Calcium [Mass/Vol] 9.3 mg/dL Normal 8.6-10.4 [facility] Comment on above: Order Comment: FASTI NG:YES FASTING: YES Performed By: #### 1 0165, 496 #### [facility] [address], [address] [place] [address] Implementation Consultant: Marcellus Thomason MD Chloride [Moles/Vol] 106 mmol/L Normal 98-110 [facility] Comment on above: Order Comment: FASTI NG:YES FASTING: YES Performed By: #### 1 0165, 496 #### [facility] [address], [address] [place] [address] Implementation Consultant: Marcellus Thomason MD CO2 [Moles/Vol] 30 mmol/L Normal 20-32 [facility] Comment on above: Order Comment: FASTI NG:YES FASTING: YES Performed By: #### 1 0165, 496 #### [facility] [place] [address] Implementation Consultant: Marcellus Thomason MD Creatinine [Mass/Vol] 0.54 mg/dL Normal 0.50-1.05 [facility] Comment on above: Order Comment: FASTI NG:YES FASTING: YES Result Comment: For patients >49 years of age, the reference limit for Creatinine is approximately 13% higher for people identified as -Kittitian. Performed By: #### 1 0165, 496 #### [facility] [address], [address] [place] [address] Implementation Consultant: Marcellus Thomason MD eGFR NON-AFR. RWANDAN 105 mL/min/1.73m2 Normal > OR = 60 [facility] Comment on above: Order Comment: FASTI NG:YES FASTING: YES Performed By: #### 1 0165, 496 #### [facility] [address], [address] [place] [address] Implementation Consultant: Marcellus Thomason MD GFR/1.73 sq M.predicted among blacks MDRD (S/P/Bld) [Vol rate/Area] 122 mL/min/{1.73_m2} Normal > OR = 60 [facility] Comment on above: Order Comment: FASTI NG:YES FASTING: YES Performed By: #### 1 0165, 496 #### [facility] [address], [address] [place] [address] Implementation Consultant: Marcellus Thomason MD Glucose [Mass/Vol] 152 mg/dL High 65-99 [facility] Comment on above: Order Comment: FASTI NG:YES FASTING: YES Result Comment: Fasting reference interval For someone without known diabetes, a glucose value >125 mg/dL indicates that they may have diabetes and this should be confirmed with a follow-up test. Performed By: #### 1 0165, 496 #### [facility] [address], [address] [place] [address] Implementation Consultant: Marcellus Thomason MD Potassium [Moles/Vol] 4.4 mmol/L Normal 3.5-5.3 [facility] Comment on above: Order Comment: FASTI NG:YES FASTING: YES Performed By: #### 1 0165, 496 #### [facility] [address], [address] [place] [address] Implementation Consultant: Marcellus Thomason MD Sodium [Moles/Vol] 144 mmol/L Normal 135-146 [facility] Comment on above: Order Comment: FASTI NG:YES FASTING: YES Performed By: #### 1 0165, 496 #### [facility] [place] [address] Implementation Consultant: Marcellus Thomason MD Urea nitrogen [Mass/Vol] 14 mg/dL Normal 7-25 [facility] Comment on above: Order Comment: FASTI NG:YES FASTING: YES Performed By: #### 1 0165, 496 #### [facility] [place] [address] Implementation Consultant: Marcellus Thomason MD HEMOGLOBIN A1con 12-22-2021 HEMOGLOBIN A1c 6.8 % of total Hgb High <5.7 [facility] Comment on above: Result Comment: For someone without known diabetes, a hemoglobin A1c value of 6.5% or greater indicates that they may have diabetes and this should be confirmed with a follow-up test. For someone with known diabetes, a value <7% indicates that their diabetes is well controlled and a value greater than or equal to 7% indicates suboptimal control. A1c targets should be individualized based on duration of diabetes, age, comorbid conditions, and other considerations. Currently, no consensus exists regarding use of hemoglobin A1c for diagnosis of diabetes for children. Performed By: #### 3 4879, 496, 73320, 6517, 1759, 342[address], 927, 7600 #### [facility] [address], [address] [place] [address] Implementation Consultant: Marcellus Thomason MD ALBUMIN, RANDOM URINE W/CREA TININEon 10-04-2021 ALBUMIN, URINE 0.5 mg/dL Normal See Note: [facility] Comment on above: Result Comment: Refe rence Range: Reference Range Not established Performed By: #### 6 517 #### [facility] [address], [address] [place] [address] Implementation Consultant: Marcellus Thomason MD ALBUMIN/CREATININE RATIO, RANDOM URINE 9 mcg/mg creat Normal <30 [facility] Comment on above: Result Comment: The ADA defines abnormalities in albumin excretion as follows: Albuminuria Category Result (mcg/mg creatinine) Normal to Mildly increased <30 Moderately increased 30-299 Severely increased > OR = 300 The ADA recommends that at least two of three specimens collected within a 3-6 month period be abnormal before considering a patient to be within a diagnostic category. Performed By: #### 6 517 #### [facility] [place] [address] Implementation Consultant: Marcellus Thomason MD Creatinine (U) [Mass/Vol] 53 mg/dL Normal 20-275 [facility] Comment on above: Performed By: #### 6 517 #### [facility] [place] [address] Implementation Consultant: Marcellus Thomason MD ALBUMIN, RANDOM URINE W/CREA TININEon 09-21-2021 ALBUMIN, URINE Normal [facility] Comment on above: Result Comment: TEST NOT PERFORMED No urine received. Performed By: #### 3 4879, 496, 92334, 6517, 1759, 29028, 927, 7600 #### [facility] [address], [address] [place] [address] Implementation Consultant: Marcellus Thomason MD CREATININE, RANDOM URINE Normal [facility] Comment on above: Result Comment: TEST NOT PERFORMED No urine received. Performed By: #### 3 4879, 496, 59046, 6517, 1759, 23629, 927, 7600 #### [facility] [place] [address] Implementation Consultant: Marcellus Thomason MD CBC (H/H, RBC, INDICES, WBC, PLT)on 09-21-2021 Erythrocyte distribution width (RBC) [Ratio] 13.9 % Normal 11.0-15.0 [facility] Comment on above: Performed By: #### 3 4879, 496, 83080, 6517, 1759, 25286, 927, 7600 #### [facility] [place] [address] Implementation Consultant: Marcellus Thomason MD Hematocrit (Bld) [Volume fraction] 37.0 % Normal 35.0-45.0 [facility] Comment on above: Performed By: #### 3 4879, 496, 97933, 6517, 1759, 18072, 927, 7600 #### [facility] [place] [address] Implementation Consultant: Marcellus Thomason MD Hemoglobin (Bld) [Mass/Vol] 12.8 g/dL Normal 11.7-15.5 [facility] Comment on above: Performed By: #### 3 4879, 496, 76089, 6517, 1759, 66611, 927, 7600 #### [facility] [place] [address] Implementation Consultant: Marcellus Thomason MD MCH (RBC) [Entitic mass] 31.1 pg Normal 27.0-33.0 [facility] Comment on above: Performed By: #### 3 4879, 496, 76542, 6517, 1759, 74341, 927, 7600 #### [facility] [place] [address] Implementation Consultant: Marcellus Thomason MD MCHC (RBC) [Mass/Vol] 34.6 g/dL Normal 32.0-36.0 [facility] Comment on above: Performed By: #### 3 4879, 496, 77333, 6517, 1759, 30631, 927, 7600 #### [facility] [place] [address] Implementation Consultant: Marcellus Thomason MD MCV (RBC) [Entitic vol] 90.0 fL Normal 80.0-100.0 [facility] Comment on above: Performed By: #### 3 4879, 496, 65342, 6517, 1759, 24255, 927, 7600 #### [facility] [place] [address] Implementation Consultant: Marcellus Thomason MD Platelet mean volume (Bld) [Entitic vol] 10.2 fL Normal 7.5-12.5 [facility] Comment on above: Performed By: #### 3 4879, 496, 38819, 6517, 1759, 05846, 927, 7600 #### [facility] [place] [address] Implementation Consultant: Marcellus Thomason MD Platelets (Bld) [#/Vol] 238 10*3/uL Normal 140-400 [facility] Comment on above: Performed By: #### 3 4879, 496, 60648, 6517, 1759, 98229, 927, 7600 #### [facility] [place] [address] Implementation Consultant: Marcellus Thomason MD RBC (Bld) [#/Vol] 4.11 10*6/uL Normal 3.80-5.10 [facility] Comment on above: Performed By: #### 3 4879, 496, 92241, 6517, 1759, 39648, 927, 7600 #### [facility] [place] [address] Implementation Consultant: Marcellus Thomason MD WBC (Bld) [#/Vol] 6.3 10*3/uL Normal 3.8-10.8 [facility] Comment on above: Performed By: #### 3 4879, 496, 29030, 6517, 1759, 21397, 927, 7600 #### [facility] [place] [address] Implementation Consultant: Marcellus Thomason MD COMPREHENSIVE METABOLIC PANE [facility] 09-21-2021 Albumin [Mass/Vol] 4.3 g/dL Normal 3.6-5.1 [facility] Comment on above: Performed By: #### 3 4879, 496, 53530, 6517, 1759, 88058, 927, 7600 #### [facility] [place] [address] Implementation Consultant: Marcellus Thomason MD Albumin/Globulin [Mass ratio] 2.5 {ratio} Normal 1.0-2.5 [facility] Comment on above: Performed By: #### 3 4879, 496, 42570, 6517, 1759, 20252, 927, 7600 #### [facility] [place] [address] Implementation Consultant: Marcellus Thomason MD ALP [Catalytic activity/Vol] 151 U/L Normal 37-153 [facility] Comment on above: Performed By: #### 3 4879, 496, 44058, 6517, 1759, 30441, 927, 7600 #### [facility] [place] [address] Implementation Consultant: Marcellus Thomason MD ALT [Catalytic activity/Vol] 23 U/L Normal 6-29 [facility] Comment on above: Performed By: #### 3 4879, 496, 76045, 6517, 1759, 28078, 927, 7600 #### [facility] [place] [address] Implementation Consultant: Marcellus Thomason MD AST [Catalytic activity/Vol] 19 U/L Normal 10-35 [facility] Comment on above: Performed By: #### 3 4879, 496, 44671, 6517, 1759, 52311, 927, 7600 #### [facility] [place] [address] Implementation Consultant: Marcellus Thomason MD Bilirubin [Mass/Vol] 0.4 mg/dL Normal 0.2-1.2 [facility] Comment on above: Performed By: #### 3 4879, 496, 56243, 6517, 1759, 65089, 927, 7600 #### [facility] [address], [address] [place] [address] Implementation Consultant: Marcellus Thomason MD BUN/CREATININE RATIO NOT APPLICABLE Normal 6-22 [facility] Comment on above: Performed By: #### 3 4879, 496, 61985, 6517, 1759, 93290, 927, 7600 #### [facility] [address], [address] [place] [address] Implementation Consultant: Marcellus Thomason MD Calcium [Mass/Vol] 9.1 mg/dL Normal 8.6-10.4 [facility] Comment on above: Performed By: #### 3 4879, 496, 03415, 6517, 1759, 48630, 927, 7600 #### [facility] [place] [address] Implementation Consultant: Marcellus Thomason MD Chloride [Moles/Vol] 105 mmol/L Normal 98-110 [facility] Comment on above: Performed By: #### 3 4879, 496, 00880, 6517, 1759, 75591, 927, 7600 #### [facility] [place] [address] Implementation Consultant: Marcellus Thomason MD CO2 [Moles/Vol] 28 mmol/L Normal 20-32 [facility] Comment on above: Performed By: #### 3 4879, 496, 74096, 6517, 1759, 24100, 927, 7600 #### [facility] of [address], [address] [place] [address] Implementation Consultant: Marcellus Thomason MD Creatinine [Mass/Vol] 0.58 mg/dL Normal 0.50-1.05 [facility] Comment on above: Result Comment: For patients >49 years of age, the reference limit for Creatinine is approximately 13% higher for people identified as -Kittitian. Performed By: #### 3 4879, 496, 11574, 6517, 1759, 72394, 927, 7600 #### [facility] [place] [address] Implementation Consultant: Marcellus Thomason MD eGFR NON-AFR. RWANDAN 103 mL/min/1.73m2 Normal > OR = 60 [facility] Comment on above: Performed By: #### 3 4879, 496, 41553, 6517, 1759, 52316, 927, 7600 #### [facility] [place] [address] Implementation Consultant: Marcellus Thomason MD GFR/1.73 sq M.predicted among blacks MDRD (S/P/Bld) [Vol rate/Area] 119 mL/min/{1.73_m2} Normal > OR = 60 [facility] Comment on above: Performed By: #### 3 4879, 496, 42598, 6517, 1759, 60294, 927, 7600 #### [facility] [place] [address] Implementation Consultant: Marcellus Thomason MD Globulin (S) [Mass/Vol] 1.7 g/dL Low 1.9-3.7 [facility] Comment on above: Performed By: #### 3 4879, 496, 27966, 6517, 1759, 72087, 927, 7600 #### [facility] [place] [address] Implementation Consultant: Marcellus Thomason MD Glucose [Mass/Vol] 278 mg/dL High 65-99 [facility] Comment on above: Result Comment: Fasting reference interval For someone without known diabetes, a glucose value >125 mg/dL indicates that they may have diabetes and this should be confirmed with a follow-up test. Performed By: #### 3 4879, 496, 99971, 6517, 1759, 06233, 927, 7600 #### [facility] [place] [address] Implementation Consultant: Marcellus Thomason MD Potassium [Moles/Vol] 4.1 mmol/L Normal 3.5-5.3 [facility] Comment on above: Performed By: #### 3 4879, 496, 81734, 6517, 1759, 85563, 927, 7600 #### [facility] [place] [address] Implementation Consultant: Marcellus Thomason MD Protein [Mass/Vol] 6.0 g/dL Low 6.1-8.1 [facility] Comment on above: Performed By: #### 3 4879, 496, 51754, 6517, 1759, 02294, 927, 7600 #### [facility] [place] [address] Implementation Consultant: Marcellus Thomason MD Sodium [Moles/Vol] 142 mmol/L Normal 135-146 [facility] Comment on above: Performed By: #### 3 4879, 496, 26483, 6517, 1759, 74140, 927, 7600 #### [facility] [place] [address] Implementation Consultant: Marcellus Thomason MD Urea nitrogen [Mass/Vol] 11 mg/dL Normal 7-25 [facility] Comment on above: Performed By: #### 3 4879, 496, 40543, 6517, 1759, 90233, 927, 7600 #### [facility] [place] [address] Implementation Consultant: Marcellus Thomason MD HEMOGLOBIN A1con 09-21-2021 HEMOGLOBIN A1c 9.8 % of total Hgb High <5.7 [facility] Comment on above: Result Comment: For someone without known diabetes, a hemoglobin A1c value of 6.5% or greater indicates that they may have diabetes and this should be confirmed with a follow-up test. For someone with known diabetes, a value <7% indicates that their diabetes is well controlled and a value greater than or equal to 7% indicates suboptimal control. A1c targets should be individualized based on duration of diabetes, age, comorbid conditions, and other considerations. Currently, no consensus exists regarding use of hemoglobin A1c for diagnosis of diabetes for children. Performed By: #### 3 4879, 496, 51182, 6517, 1759, 18205, 927, 7600 #### [facility] [address], [address] [place] [address] Implementation Consultant: Marcellus Thomason MD LIPID PANEL, [facility] 03-0 Cholesterol [Mass/Vol] 182 mg/dL Normal <200 [facility] Comment on above: Performed By: #### 3 4879, 496, 51274, 6517, 1759, 31816, 927, 7600 #### [facility] [address], [address] [place] [address] Implementation Consultant: Marcellus Thomason MD Cholesterol in HDL [Mass/Vol] 49 mg/dL Low > OR = 50 [facility] Comment on above: Performed By: #### 3 4879, 496, 85069, 6517, 1759, 29426, 927, 7600 #### [facility] [address], [address] [place] [address] Implementation Consultant: Marcellus Thomason MD Cholesterol in LDL [Mass/Vol] 98 mg/dL Normal [facility] Comment on above: Result Comment: Refe rence range: <100 Desirable range <100 mg/dL for primary prevention; <70 mg/dL for patients with CHD or diabetic patients with > or = 2 CHD risk factors. LDL-C is now calculated using the Peyton calculation, which is a validated novel method providing better accuracy than the Friedewald equation in the estimation of LDL-C. Jone VALDEZ et al. HARSHIL. 2013;310(19): 2259-6349 (http://[email or web address]/[email or web address]) Performed By: #### 3 4879, 496, 23190, 6517, 1759, 70782, 927, 7600 #### [facility] [address], [address] [place], [place] [address] Implementation Consultant: Marcellus Thomason MD Cholesterol.total/C holesterol in HDL [Mass ratio] 3.7 {ratio} Normal <5.0 [facility] Comment on above: Performed By: #### 3 4879, 496, 38647, 6517, 1759, 36217, 927, 7600 #### [facility] [address], [address] [place], [place] [address] Implementation Consultant: Marcellus Thomason MD NON HDL CHOLESTEROL 133 mg/dL (calc) High <130 [facility] Comment on above: Result Comment: For patients with diabetes plus 1 major ASCVD risk factor, treating to a non-HDL-C goal of <100 mg/dL (LDL-C of <70 mg/dL) is considered a therapeutic option. Performed By: #### 3 4879, 496, 61768, 6517, 1759, 66544, 927, 7600 #### [facility] [address], [address] [place] [address] Implementation Consultant: Marcellus Thomason MD Triglyceride [Mass/Vol] 232 mg/dL High <150 [facility] Comment on above: Result Comment: If a non-fasting specimen was collected, consider repeat triglyceride testing on a fasting specimen if clinically indicated. Christine et al. J. of Clin. Lipidol. 2015;9:129-169. Performed By: #### 3 4879, 496, 61921, 6517, 1759, 52222, 927, 7600 #### [facility] [address], [address] [place], [place] [address] Implementation Consultant: Marcellus Thomason MD METHYLMALONIC ACIDon 022 METHYLMALONIC ACID 131 nmol/L Normal 87-318 [facility] Comment on above: Result Comment: See Note 1 Note 1 This test was developed and its analytical performance characteristics have been determined by [employer]. It has not been cleared or approved by the FDA. This assay has been validated pursuant to the CLIA regulations and is used for clinical purposes. Performed By: #### 3 4879, 496, 39786, 6517, 1759, 13747, 927, 7600 #### [facility] [address], [address] [place] [address] Implementation Consultant: Marcellus Thomason MD TSH W/REFLEX TO FT4on 2021 TSH W/REFLEX TO FT4 1.97 mIU/L Normal 0.40-4.50 [facility] Comment on above: Performed By: #### 3 4879, 496, 32256, 6517, 1759, 26404, 927, 7600 #### [facility] [place] [address] Implementation Consultant: Marcellus Thomason MD VITAMIN B12on 09-21-2021 Cobalamin (Vitamin B12) [Mass/Vol] 321 pg/mL Normal 200-1100 [facility] Comment on above: Result Comment: Please Note: Although the reference range for vitamin B12 is 200-1100 pg/mL, it has been reported that between 5 and 10% of patients with values between 200 and 400 pg/mL may experience neuropsychiatric and hematologic abnormalities due to occult B12 deficiency; less than 1% of patients with values above 400 pg/mL will have symptoms. Performed By: #### 3 4879, 496, 54999, 6517, 1759, 30111, 927, 7600 #### [facility] [place] [address] Implementation Consultant: Marcellus Thomason MD Vital Signs Date Time Vital Sign Value Performing Clinician Facility 12-29-2022 18:20-0400 Body height 152.4 cm Gracy Drake Other [facility] 12-29-2022 18:20-0400 Body temperature 96.8 [degF] Gracy Drake Other [facility] 12-29-2022 18:20-0400 Diastolic blood pressure 69 mm[Hg] Gracy Drake Other [facility] 12-29-2022 18:20-0400 Respiratory rate 18 /min Gracy Noelle Other [facility] 12-29-2022 18:20-0400 SaO2% (BldA) [Mass fraction] 100 % Gracy Noelle Other [facility] 12-29-2022 18:20-0400 Systolic blood pressure 135 mm[Hg] Gracy Noelle Other [facility] 11-05-2021 10:05-0400 Body height 152.4 cm Melonie Gavin Other [facility] Other 11-05-2021 10:05-0400 Body temperature 96.5 [degF] Melonie Gavin Other [facility] 11-05-2021 10:05-0400 Diastolic blood pressure 80 mm[Hg] Melonie Gavin Other [facility] 11-05-2021 10:05-0400 Respiratory rate 18 /min Melonie Alonso Other [facility] 11-05-2021 10:05-0400 SaO2% (BldA) [Mass fraction] 100 % Melonie Alonso Other [facility] Other 11-05-2021 10:05-0400 Systolic blood pressure 143 mm[Hg] Melonie Alonso Other [facility] Other Encounters Encounter Date Encounter Type Care Provider Facility Start: 05-21-2023 End: 05-22-2023 ambulatory Marisa Cohen MD Facility:[facility] Start: 04-30-2023 End: 05-01-2023 ambulatory Marisa Cohen MD Facility:[facility] Start: 04-16-2023 End: 04-17-2023 ambulatory Marisa Cohen MD Facility:[facility] Start: 02-02-2023 End: 02-02-2023 Emergency department patient visit Dani Damon Facility:[facility] Start: 12-29-2022 End: 12-29-2022 ambulatory Gracy Drake Other [facility] Start: 12-29-2022 Patient encounter procedure Gracy Drake [facility] Start: 11-25-2022 End: 11-26-[address] MAR CARRIZALES Facility:[facility] Start: 11-14-2022 End: 11-14-[address] DOCTOR CANADA Facility:[facility] Start: 11-04-2022 End: 11-04-2022 ambulatory DOUGLAS CHÁVEZ . Facility:[facility] Start: 05-16-2022 End: 05-17-[address] JESSE QIU Facility:[facility] Start: 03-01-2022 End: 03-02-[address] JESSE QIU Facility:[facility] Start: 11-05-2021 End: 11-05-2021 ambulatory Melonie Alonso Other [facility] Other Start: 11-05-2021 Office outpatient ne w 20 minutes Melonie Alonso [facility] Payers Date Payer Category Payer Self-pay 2022 Private Health Insurance 1965 Unknown [id number] 2.16.84 [id number] 1965 Unknown [id number] 2.16.84 [id number] 1965 Unknown [id number] 2.16.84 [id number] 1965 Unknown [id number] 2.16.84 [id number] 1965 Unknown [id number] 2.16.84 [id number] 1965 Unknown [id number] 2.16. [id number] 1965 Unknown [id number] 2.16. [id number] 1965 Unknown [id number] 2.16. [id number] 1959 [facility] [id number] 1959 Unknown [id number] Unknown [id number] 2.16.8 [id number] Social History Date Type Detail Facility Sex Assigned At [facility] Other Evaluation note 11-05-2021 Note Date & Type Note Facility 11-05-2021 Evaluation note Encounter Date Diagnosis Assessment Notes Oct, Benign paroxysmal positional vertigo, unspecified laterality (ICD-10 - H81.10) Take medications as directed. Follow up with primary care provider if symptoms are not improved over next few days. Handouts printed on exercises that may help relieve symptoms. If other symptoms develop, go to emergency room Oct, Other Performing cindy maneuver material was printed [facility] Other Evaluation note Note Date & Type Note Facility Evaluation note No Information [facility] Other History general Narrative - Reported Note Date & Type Note Facility History general Narrative - Reported Type Medical History diabetes mallitus [facility] Other History general Narrative - Reported Note Date & Type Note Facility History general Narrative - Reported [facility] Other Summary Purpose Family History No Family History Records FoundNo Family History Records FoundNo Family History Records FoundNo Family History Records Found Advance Directives No Advanced Directives Records FoundNo Advanced Directives Records FoundNo Advanced Directives Records FoundNo Advanced Directives Records Found Additional Source Comments INFORMATION SOURCE (unrecogn ized section and content) DATE CREATED AUTHOR 12/22/2021 [facility] DATE CREATED AUTHOR AUTHOR'S ORGANIZ ATION 12/22/2022 [facility] DATE CREATED AUTHOR AUTHOR'S ORGANIZ ATION 02/15/2023 [facility] DATE CREATED AUTHOR AUTHOR'S ORGANIZ ATION 05/24/2023 [facility] REASON FOR VISIT (unrecogniz ed section and content) DIZZINESS, CAUSING NAUSEA FOR RECORDS PERTAINING TO PATIENTS WHO ARE OR HAVE BEEN ENROLLED IN A CHEMICAL DEPENDENCY/SUBSTANCEABUSE PROGRAM, SOME INFORMATION MAY BE OMITTED. This clinical summary was aggregated from multiple sources. Caution should be exercised in using it in the provision of clinical care. This summary normalizes information from multiple sources, and as a consequence, information in this document may materially change the coding, format and clinical context of patient data. In addition, data may be omitted in some cases. CLINICAL DECISIONS SHOULD BE BASED ON THE PRIMARY CLINICAL RECORDS. [facility]. provides no warranty or guarantee of the accuracy or completeness of information in this document.
[2023-07-23 07:06] VITALS: BP 103/70; PULSE 78; RESP 16; TEMP 36.4; O2SAT 99
[2023-07-23 07:18] LABS: Glucometer 316 mg/dL (74-106)
[2023-07-23 07:54] VITALS: BP 139/63; PULSE 74; RESP 18; O2SAT 96
[2023-07-23] MEDS: TRIAMCINOLONE ACETONIDE 40 MG/ML VIAL INJ (07:55)
[2023-07-23] MEDS: BUPIVACAINE HCL 0.25% PF 25 MG/10 ML VIAL INJ (07:55)
[2023-07-23] MEDS: LIDOCAINE HCL 2% 400 MG/20 ML MDV 15 ML INJ (07:55)
[2023-07-23 08:03] VITALS: BP 143/85; PULSE 72; RESP 18; O2SAT 96
--- NOTE | 2023-07-23 08:09 | P.ON_ITS ---
Date of procedure: 07/23/23 Pre-op diagnosis: Lumbar spondylosis Post-op diagnosis: same as pre-op Procedure: Procedure: Bilateral L4-5, l5-S1 radiofrequency ablation Medications: Bupivacaine 0.25% 6cc, lidocaine 2% 5cc, kenalog 80mg The patient was seen and examined in the preoperative holding area.? The site was marked.? Written informed consent was obtained and placed on the chart.? The patient was brought to the medical procedure unit and placed in the prone position.? A timeout was completed verifying correct patient, procedure, positioning, and special requirements.? The skin overlying the target points, the designated medial branch, were prepped and draped in the usual sterile fashion.? The target point was achieved with a 20-gauge 15 cm with a 10 mm curved active tip radiofrequency cannula under direct fluoroscopic visualization.? The needle was inserted at level L4 on the right side. Needle tip position was confirmed with lateral fluoroscopic position.? Motor stimulation was carried out at 2 Hz up to 5 volts with the absence of extremity activity.? This was repeated at level L5, S1 on right side.?? Sensory stimulation was carried out.? Concordant pain was realized at the above- mentioned sites.? Then radiofrequency lesioning was carried out times 90 seconds at 80 degrees times 2 lesions at each level.? The radiofrequency probe was removed prior to cannula removal.? The above-mentioned injectate was placed in 1 mL increments.? The needle was removed. The same procedure, with the same steps, was then completed on the left side at the same levels. Insertion sites were covered.? The patient was taken to the postoperative recovery area and monitored for an appropriate length of time before being found suitable for discharge in the company of a responsible adult. Anesthesia: Local Surgeon: Marisa Cohen Pathology: none sent Condition: stable Disposition: no change
== END 2023-07-23 08:13 | disposition home or self-care (01) ==
PROVIDERS: Visit Provider Anesthesiology
DX: M47.816 Spondylosis without myelopathy or radiculopathy, lumbar region (principal)
CPT/HCPCS: 36415; 64635; 64636; 82948; J0665; J3301